=== PATIENT | male | born 1965 | race Caucasian/White ===

== ENCOUNTER 2019-09-20 12:28 | Emergency (ER) | payer BC, SELFPAY ==
[2019-09-20 12:30] VITALS: BP 152/80; PULSE 116; RESP 18; TEMP 36.6; O2SAT 98; BMI 29.1
--- NOTE | 2019-09-20 13:29 | ED.DCSUM_ITS ---
- ER Visit Summary Date of Service: 09/20/19 Chief Complaint: Cough and chest pain History of Present Illness: The patient is a 53 M who presents with cough and chest pain that began yesterday. Patient describes the pain is dull and aching. Patient states the pain is over the substernal area. Patient states pain improves with Tylenol. Patient states this feels similar to prior episodes of bronchitis. Patient admits to a fever of 101 at home. Patient states he is coughing up some yellow sputum. Patient admits to some shortness of breath as well. Patient also admits to headache and rhinorrhea. Physical Examination: Vital signs are stable. Patient is afebrile. Patient is in no acute distress. Oral mucosa is pink and moist. Neck is supple. Trachea is midline. There is no JVD noted. Heart was regular rate and rhythm. Lungs showed a few scattered rhonchi. Abdomen is soft. Bowel sounds are normal. There is no tenderness. There is no rebound or guarding noted. Skin is warm dry. Cranial nerves II through XII are intact. There are no focal motor or sensory deficits noted. Extremities are intact. There is no calf tenderness or edema. Test Results: CBC shows a slight leukocytosis of 12.0. Comprehensive metabolic profile was within normal limits. RSV swab was negative. Influenza swab was negative. Rapid strep swab was obtained and was positive. PA and lateral chest x-ray was obtained. There is no acute cardiopulmonary process. Emergency Department Course and Treatment: Patient was given a dose of Pen-Vee K here. Patient was given a prescription for Pen-Vee K. Patient was instructed to follow-up with his primary care physician in 5 to 7 days. Patient understood and was agreeable with the plan. All questions were answered. Disposition: Discharge home Impression: Strep pharyngitis This note was generated with [employer] dictation software. It may contain incorrect words, spelling, and punctuation that were not noted in review of the chart prior to signing ED Disposition - Plan for ED Patient: Disposition: Home or Assisted Living Diagnosis: Strep pharyngitis Instructions: PHARYNGITIS, Strep (Confirmed) Prescriptions: Penicillin V Potassium 500 mg PO 4X/DAY #40 tab Prescription Printed Referrals: NOT,DEFINED [NON-STAFF] - 5-7 Days
--- NOTE | 2019-09-20 13:44 | RAD_ITS ---
STUDY: X-RAY CHEST REASON FOR EXAM: Male, 53 years old. COUGH, FEVER, SOB, HEADACHE, CHEST TIGHTNESS TECHNIQUE: PA and lateral views of the chest. COMPARISON: None. FINDINGS: Hyperinflation. There is no demonstrated pleural abnormality. Normal size heart. Calcified bilateral hilar lymph nodes. There is prominence of the pulmonary hilar arteries without peripheral pulmonary vascular congestion, suggesting pulmonary hypertension. Normal visualized aortic arch and descending thoracic aorta. There are degenerative changes of the visualized thoracic spine. Normal visualized ribs, clavicles, and shoulders. There is no demonstrated abnormality of the visualized soft tissue structures of the upper abdomen. RAD/Chest PA and Lateral IMPRESSION: Hyperinflation. No acute abnormality is seen. Electronically Signed: Augustine Bowman, at 14:07 EDT , Service support ,
[2019-09-20 13:47] LABS: Absolute Neutrophil Count 5.6 X10^3/uL (2.0-7.7); Basophil# 0.04 X10^3/uL; Basophil% 0.3 % (0-1); Eosinophils% 0.8 % (0-5); Hematocrit 46.9 % (40-54); Hemoglobin 15.8 g/dL (13.0-16.5); Mean Corp Hgb Conc 33.7 g/dL (32-36); Mean Corpuscular Hgb 31.9 pg (27.0-32.0); Mean Corpuscular Volume 94.7 fL (80-94); Mean Platelet Vol. 9.9 fl (6.2-12.0); Monocyte# 0.97 X10^3/uL; Monocyte% 8.1 % (0-10); NRBC Flagged by Analyzer 0 % (0-5); Neutrophil # 5.57 X10^3/uL (2.7-7.7); Neutrophil % 46.3 % (47-70); POSITIVE DIFFERENTIAL YES; Platelet Count 298 K/mm3 (150-450); RBC Distribution Width SD 45.2 fl (35.1-43.9); Red Blood Count 4.95 M/mm3 (4.6-6.2)
[2019-09-20 14:07] LABS: AST(SGOT) 15 U/L (15-37); Alanine Aminotransfer ALT/SGPT 18 U/L (16-61); Albumin, Serum 3.7 g/dL (3.2-5.0); Alkaline Phosphatase 68 U/L (45-117); Anion Gap 8 (5-15); BUN 12 mg/dL (7-18); BUN/Creat Ratio 9.5 RATIO (10-20); Calcium,Total 8.6 mg/dL (8.5-10.1); Chloride 102 mmol/L (98-107); Creatinine, Serum 1.26 mg/dL (0.70-1.30); EST Glomerular Filtration Rate 64 mL/min (>60); Est Glom Filt Rate - Afr Amer 77 mL/min (>60); Estimated Creatinine Clearance 60.33 ml/min; Globulin 3.7 g/dL (2.2-4.2); Glucose 108 mg/dL (74-106); Potassium 3.6 mmol/L (3.5-5.1); Protein, Total 7.4 g/dL (6.4-8.2); Sodium Level 138 mmol/L (136-145)
[2019-09-20 14:50] LABS: Differential Indicated SCAN CRITERIA MET
[2019-09-20 15:01] LABS: Differential Comment S
[2019-09-20] MEDS: Penicillin Vk 250 MG Tablet 500 MG PO (16:12)
[2019-09-20 16:14] VITALS: BP 100/81; PULSE 74; RESP 16; O2SAT 97
--- NOTE | 2019-09-20 16:14 | ED.RN ---
IV DC'ED, CATHETER INTACT, SMALL GAUZE DRESSING PLACED. DISCHARGE INSTRUCTIONS GIVEN TO AND REVIEWED WITH PATIENT. PATIENT DENIES QUESTIONS OR CONCERNS AND VOICES UNDERSTANDING OF DISCHARGE INSTRUCTIONS. PT AMBULATES OUT OF ROOM WITHOUT DIFFICULTY.
== END 2019-09-20 16:15 | disposition home or self-care (01) ==
PROVIDERS: Emergency Provider Emergency Medicine
DX: J02.0 Streptococcal pharyngitis (principal); R19.7 Diarrhea, unspecified; F17.200 Nicotine dependence, unspecified, uncomplicated
CPT/HCPCS: 71046; 80053; 85025; 87804; 87807; 87880; 99283; A4216

== ENCOUNTER 2024-03-15 09:46 | Emergency (ER) | payer MEDICAID, SELFPAY ==
[2024-03-15 09:47] VITALS: BP 185/84; PULSE 79; RESP 18; TEMP 36.4; O2SAT 100; BMI 30.9
--- NOTE | 2024-03-15 10:01 | RAD_ITS ---
STUDY: X-RAY - LEFT FOOT CLINICAL: Male, 58 years old. Injury/Pain TECHNIQUE: 3 view(s) of the foot. COMPARISON: None. FINDINGS: Normal talus, calcaneus, and tarsal bones. Normal visualized subtalar, talonavicular, calcaneocuboid, tarsal and tarsometatarsal articulations. Normal metatarsi. Normal metatarsophalangeal joint of the great toe. There is a bipartite tibial sesamoid. Normal interphalangeal joint of the great toe. Normal phalanges of the great toe. Normal second through fifth metatarsophalangeal joints. Normal interphalangeal joints and phalanges of the lesser toes. The soft tissue structures are unremarkable. RAD/Foot min 3 Views IMPRESSION: Normal x-ray examination of the foot. Electronically Signed: Augustine Bowman MD at 10:36 EDT ,
--- NOTE | 2024-03-15 10:01 | ED.VIS.LOWEX ---
HPI History of Present Illness Chief Complaint: Lower Extremity Injury Detail of Chief Complaint: Injury left foot due to blunt trauma 1 week ago Informant: patient and spouse/S.O. Occured/Mechanism Mechanism/Context: Yes injury and Yes blunt trauma Comment: Patient would fell on his foot. He complains of pain and swelling MTP joint of the great toe Onset/Context/Timing Onset: Weeks (1.0) Context: Sudden Onset Timing: Continuous Quality of Pain: Dull and Aching Location: Proximity of the left great toe Current Severity: Mild Maximum Severity: Moderate Worsened by: Weightbearing Relieved by: Nothing Associated Symptoms Associated Symptoms: Negative for Parasthesia, Weakness or Loss of Funtion Narrative Narrative: Patient is a 58-year-old male. He has no significant past medical history on no medication. He denies paresthesia, anesthesia motors. Denies prior injury. He has no history of gout or pseudogout. Prior similar symptoms: No Recent Illness/Hospitalization: No PFSH PFSH Medical History no medical history no medical history Home Medications ?Medication ?Instructions ?Recorded ?Last Taken ?Type lisinopril 10 mg tablet 10 mg PO DAILY #30 tabs 03/15/24 Unknown Rx Allergy/AdvReac Type Severity Reaction Status Date / Time acetaminophen (From Vicodin) AdvReac Nausea Verified 03/15/24 09:46 hydrocodone (From Vicodin) AdvReac Nausea Verified 03/15/24 09:46 Social History (Updated 03/15/24 @ 10:[address] Cezar Pace MD) household members: spouse Smoking Status: Current every day smoker tobacco type: cigarettes ROS ROS ED Musculoskeletal Musculoskeletal: Reports other Details: Left foot pain proximity of left great toe Integumentary Reports other Details: Slight bruising. Otherwise negative Hematologic/Lymphatic Hematologic/Lymphatic: Reports easy bleeding and easy bruising EXAM Physical Exam Const Vital Signs: 03/15/24 09:47 Temperature 97.6 F L Temperature Source Temporal Pulse Rate 79 Respiratory Rate 18 Blood Pressure 185/84 H Blood Pressure Mean 117 Pulse Ox 100 Oxygen Delivery Method Room Air Positive well nourished and well developed General Appearance ED: well developed and NAD HEENT normocephalic and atraumatic Resp normal respiratory effort Cardio regular rate and regular rhythm Extremity full ROM; Negative for normal to inspection Extremity Narrative: There is slight swelling over the left great toe. There is discoloration of the dorsal surface. He has pain ovation over the great toe and second and third toe. DP and PT pulse are palpable. Patient does not have stigmata PAD. Neuro oriented x3, CN's II-XII intact bilaterally and moves all extremities Psych mental status grossly normal Skin Skin Narrative: Bruising as previously described MDM MDM MDM Narrative Medical decision making narrative: With patient having pain for 1 week and difficulty ambulating will obtain x-ray to rule out contusion versus fracture. Radiography Chest X-Ray - ED: Read by ED Physician (Three-view x-ray reveals no fracture, subluxation dislocation or foreign body.) Diagnostic Testing: Clinical Impression(s) from Imaging Studies Foot X-Ray 03/15/24 10:01 IMPRESSION: Normal x-ray examination of the foot. Electronically Signed: Augustine Bowmna MD at 10:36 EDT , Discharge Plan Triage Chief Complaint: Lower Extremity Injury ED Provider: Cezar Pace Dx/Rx/DC Orders Clinical Impression: Contusion of left foot, initial encounter, Elevated blood-pressure reading, without diagnosis of hypertension Instructions: ED Foot Contusion, ED Hypertension New Begin Treatment Prescriptions: New lisinopril 10 mg tablet 10 mg PO DAILY Qty: 30 0RF Primary Care Provider: Care Physician,No Primary Referrals: Adam Ritter MD [Med Staff - Chief Of Internal Medicine] - 1-2 Weeks Care Physician,No Primary [Primary Care Provider] - Print Language: Yakut Disposition Disposition: Home, Self Care
[2024-03-15 11:46] VITALS: BP 135/87; PULSE 72; RESP 16; TEMP 36.6; O2SAT 98
== END 2024-03-15 11:50 | disposition home or self-care (01) ==
PROVIDERS: Emergency Provider Emergency Medicine; Visit Provider Emergency Medicine
DX: S90.32XA Contusion of left foot, initial encounter (principal); F17.210 Nicotine dependence, cigarettes, uncomplicated; R03.0 Elevated blood-pressure reading, without diagnosis of hypertension; X58.XXXA Exposure to other specified factors, initial encounter
CPT/HCPCS: 73630; 99282

== ENCOUNTER → 2024-07-13 | Outpatient (CLI) | payer MEDICAID, SELFPAY ==
[2024-07-13 12:14] LABS: Absolute Lymphocyte Count 4.54 X10^3/uL (0.83-4.51); Absolute Neutrophil Count 6.7 X10^3/uL (2.0-7.7); Basophil# 0.05 X10^3/uL; Basophil% 0.4 % (0-1); Eosinophil# 0.06 X10^3/uL; Eosinophils% 0.5 % (0-5); Hematocrit 49.3 % (40-54); Hemoglobin 16.4 g/dL (13.0-16.5); Lymphocyte # 4.54 X10^3/ul (0.83-4.51); Lymphocyte % 37.4 % (19-41); Mean Corp Hgb Conc 33.3 g/dL (32-36); Mean Corpuscular Hgb 29.4 pg (27.0-32.0); Mean Corpuscular Volume 88.5 fL (80-94); Mean Platelet Vol. 10.5 fl (6.2-12.0); Monocyte# 0.79 X10^3/uL; Monocyte% 6.5 % (0-10); NRBC Flagged by Analyzer 0 % (0-5); Neutrophil # 6.66 X10^3/uL (2.7-7.7); Neutrophil % 54.8 % (47-70); Platelet Count 320 K/mm3 (150-450); Red Blood Count 5.57 M/mm3 (4.6-6.2); White Blood Count 12.2 K/mm3 (4.4-11.0)
[2024-07-13 12:57] LABS: ALB/GLOB Ratio 1.1 RATIO (0.9-2.4); AST(SGOT) 20 U/L (15-37); Alanine Aminotransfer ALT/SGPT 22 U/L (16-61); Alkaline Phosphatase 68 U/L (45-117); Anion Gap 3 (5-15); BUN 15 mg/dL (7-18); BUN/Creat Ratio 11.9 RATIO (10-20); Calcium,Total 9.2 mg/dL (8.5-10.1); Chloride 104 mmol/L (98-107); Cholesterol 245 mg/dL (200); Creatinine, Serum 1.26 mg/dL (0.70-1.30); EST Glomerular Filtration Rate 63 mL/min (>60); Est Glom Filt Rate - Afr Amer 76 mL/min (>60); Globulin 3.6 g/dL (2.2-4.2); Glucose 107 mg/dL (74-106); High Density Lipoprotein 37 mg/dL; Magnesium 2.5 mg/dL (1.6-2.6); PSA,Total- Diagnostic 0.96 ng/mL (0.0-4.0); Potassium 4.2 mmol/L (3.5-5.1); Protein, Total 7.6 g/dL (6.4-8.2); Sodium Level 135 mmol/L (136-145); Thyroid Stim Hormone (TSH) 0.769 uIU/mL (0.358-3.740); Triglycerides 284 mg/dL; Very Low Density Lipoprotein 57 mg/dL (5-40)
[2024-07-13 13:06] LABS: Vitamin B12 286 pg/mL (211-911)
[2024-07-16 20:08] LABS: Vitamin B1, Thiamine 145.9 nmol/L (66.5-200.0)
== END | disposition home or self-care (01) ==
LOC: BIMLAB 11:00
PROVIDERS: PCP Internal Medicine; Referring Provider Internal Medicine; Visit Provider Internal Medicine
DX: R40.4 Transient alteration of awareness (principal); N52.9 Male erectile dysfunction, unspecified; R07.89 Other chest pain; Z91.148 Patient's other noncompliance with medication regimen for other reason; Z13.6 Encounter for screening for cardiovascular disorders
CPT/HCPCS: 36415; 80053; 80061; 82607; 83735; 84153; 84425; 84443; 85025

== ENCOUNTER → 2024-08-19 | Outpatient (CLI) | payer MEDICAID, SELFPAY ==
--- NOTE | 2024-08-19 10:01 | MRI_ITS ---
PROCEDURE: BRAIN W/WO CONTRAST REASON FOR EXAM: Staring episodes. TECHNIQUE: Multiplanar, multisequence MRI of the brain with and without intravenous gadolinium-based contrast. CONTRAST: 15 mL Clariscan. COMPARISON: None. FINDINGS: Mild global parenchymal atrophy. Periventricular white matter T2/FLAIR hyperintense foci likely representing mild chronic microvascular ischemia. No evidence of acute hemorrhage or infarction. No abnormal intracranial enhancement. No extra-axial blood or fluid collections. Bilateral maxillary sinus retention cysts. The orbits are unremarkable. MRI/Brain W/WO Contrast IMPRESSION: No acute intracranial abnormality. Reading Location: [place] [id number]
== END | disposition home or self-care (01) ==
LOC: MRI 09:56
PROVIDERS: PCP Internal Medicine; Referring Provider Internal Medicine; Visit Provider Internal Medicine
DX: R40.4 Transient alteration of awareness (principal)
CPT/HCPCS: 70553; A9575

== ENCOUNTER → 2024-08-23 | Outpatient (CLI) | payer MEDICAID, SELFPAY | END | disposition home or self-care (01) | LOC: PSN 07:59 | PROVIDERS: PCP Internal Medicine; Referring Provider Internal Medicine; Visit Provider Internal Medicine | DX: R40.4 Transient alteration of awareness (principal) | CPT/HCPCS: 95819 ==

== ENCOUNTER 2024-09-10 07:39 | Day surgery (SDC) | payer MEDICAID, SELFPAY ==
[2024-09-10] VITALS (9 sets, daily range): BP systolic 97–139; BP diastolic 75–86; PULSE 77–90; RESP 16–18; TEMP 36.2–36.6; O2SAT 95–100; BMI 27.3
--- NOTE | 2024-09-10 08:19 | PCM.PRE.AN2 ---
ASA Classification* ASA Classification ASA Classification: 2 Assessment & Plan Anesthesia* Anesthesia Assessment Anesthesia Assessment: Discussed sedation and/or anesthesia options, risks, benefits, and alternatives with patient/parents/legal guardian/POA. Questions invited. The patient/parents/legal guardian/POA seems to understand and agrees to proceed with anesthesia plan. Reviewed the physical assessment, medical history, allergy history and patient home medications list prior to surgery/procedure/anesthetic and documented any changes. Performed airway and anesthesia risk assessments. Anesthesia Type Anesthesia Type: MAC Anesthesia Focused Assessment* Temperature: 97.9 F Pulse Rate: 90 Blood Pressure: 139/86 Respiratory Rate: 16 Pulse Ox: 99 Airway Assessment Mouth opens: >3 cm Mallampati Score: II Focused Labs Anesthesia Preop lab: CBC WBC 12.2 K/mm3 (4.4-11.0) H 07/13/24 11:00 07/13/24 RBC 5.57 M/mm3 (4.6-6.2) 07/13/24 11:00 07/13/24 Hgb 16.4 g/dL (13.0-16.5) 07/13/24 11:00 07/13/24 Hct 49.3 % (40-54) 07/13/24 11:00 07/13/24 Plt Count 320 K/mm3 (150-450) 07/13/24 11:00 07/13/24 CHEMISTRY Potassium 4.2 mmol/L (3.5-5.1) 07/13/24 11:00 07/13/24 Sodium 135 mmol/L (136-145) L 07/13/24 11:00 07/13/24 Magnesium 2.5 mg/dL (1.6-2.6) 07/13/24 11:00 07/13/24 BUN 15 mg/dL (7-18) 07/13/24 11:00 07/13/24 Creatinine 1.26 mg/dL (0.70-1.30) 07/13/24 11:00 07/13/24 Glucose 107 mg/dL (74-106) H 07/13/24 11:00 07/13/24 TSH 0.769 uIU/mL (0.358-3.740) 07/13/24 11:00 07/13/24 COAG Pre-Assessment Diagnosis/Proposed Procedure Planned Operative Procedure(s): CSCOPE Anesthesia History Anesthesia History - director public policy: Anesthesia History - director public policy Hx Hospitalization No 09/08/24 11:38 Any Problems With Anesthesia No 09/08/24 11:38 Cholinesterase deficiency No 09/08/24 11:38 You/Your Family Experience No 09/08/24 11:38 fever (hyperthermia) with Relationship Recent Exposure to Contagious No 09/10/24 08:01 Disease Does patient have nerve No 09/08/24 11:38 stimulator Patient instructed to have device shut off --Does patient have Pacemaker No 09/10/24 08:01 or ICD? When Was Last Pacemaker Check QUESTION #4 FULL TEXT: You/Your Family Experience fever (hyperthermia) with Anesthesia Last Oral Intake Last Oral intake: Last Oral Intake NPO since 06:00 09/10/24 08:01 Meds taken in AM with sips of No 09/10/24 08:01 water? Meds patient instructed to take am of surgery PONV PONV - director public policy: PONV - director public policy Female No 09/08/24 11:38 HX of Motion Sickness No 09/08/24 11:38 HX of N/V After Surgery No 09/08/24 11:38 Non-Smoker No 09/08/24 11:38 Duration of Surgery greater No 09/08/24 11:38 than 60 minutes Number of Risk Factors PONV Score Height & Weight Height & Weight: Anesthesia: Height & Weight Height 5 ft 4 in 09/10/24 08:01 Weight: 72.2 kg 09/10/24 08:01 Body Mass Index (BMI) 27.3 09/10/24 08:01 Respiratory Assessment Respiratory Assessment - director public policy: Respiratory Tract Infection Hx - director public policy Hx Respiratory Tract Infection Yes: 07/2023, CLEARED UP 09/08/24 11:38 STOP Sleep Apnea STOP Sleep Apnea - director public policy: STOP Sleep Apnea - director public policy Hx Hypertension Yes: WHITE COAT SYNDROME 09/08/24 11:38 Hx Sleep Apnea No 09/08/24 11:38 CPAP BIPAP Do you snore loudly (louder No 09/08/24 11:38 than talking or can be heard Do you often feel tired/ No 09/08/24 11:38 fatigued/ sleepy during daytime? Has anyone observed you stop No 09/08/24 11:38 breathing during sleep? STOP Results Negative 09/08/24 11:38 QUESTION #5 FULL TEXT : Do you snore loudly (louder than talking or can be heard through closed doors)? 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 Specify any problems Hx of Preganancy in last 3 N/A 09/08/24 11:38 Months Nurse Filling Out Transfusion NBUCHER 09/08/24 11:38 & Questions: Date: 09/08/24 09/08/24 11:38 Time: 11:39 09/08/24 11:38 Patient unable to answer at this time (ie. confused, unrespo /Reproduction History /Reproductive History - director public policy: /Reproductive Hx- director public policy Hx Now No 09/08/24 11:38 Gestational Age (in weeks): EDC: Hx Hx Para Hx Section SAB No 09/08/24 11:38 [facility] Medical History Wears glasses No natural teeth Seizures High cholesterol Smoker Peptic ulcer hemorrhage History of tumor Vision problems Head ache Back problem Home Medications ?Medication ?Instructions ?Recorded ?Last Taken ?Type ibuprofen 200 mg tablet 200 mg PO Q6H PRN pain 07/13/24 Unknown History mecobalamin (vitamin B12) 500 mcg 500 mcg PO QDAY 07/20/24 Unknown History chewable tablet lovastatin 20 mg tablet 20 mg PO QPM #30 tabs 08/05/24 Unknown Rx Allergy/AdvReac Type Severity Reaction Status Date / Time lisinopril AdvReac Mild dry mouth, Verified 09/10/24 08:01 cough hydrocodone (From Vicodin) AdvReac Nausea Verified 09/10/24 08:01 Family History Mother Alcoholism Arthritis Cancer cervical Hypertension Grandfather Alcoholism Myocardial infarction, Onset Age: 50 Hypertension Liver disease Surgical History History of hip surgery History of tonsillectomy Hx of appendectomy Social History household members: spouse current occupational status: employed 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
--- NOTE | 2024-09-10 08:46 | H&P.OPEN ---
HPI - General HPI Narrative RO DE LA ROSA, is a 58 M who presents for screening colonoscopy. This is his first colonoscopy. He denies abdominal pain or blood in the stool. He has no family history of colon cancer. PFSH Medical History Wears glasses No natural teeth Seizures High cholesterol Smoker Peptic ulcer hemorrhage History of tumor Vision problems Head ache Back problem Home Medications ?Medication ?Instructions ?Recorded ?Last Taken ?Type ibuprofen 200 mg tablet 200 mg PO Q6H PRN pain 07/13/24 Unknown History mecobalamin (vitamin B12) 500 mcg 500 mcg PO QDAY 07/20/24 Unknown History chewable tablet lovastatin 20 mg tablet 20 mg PO QPM #30 tabs 08/05/24 Unknown Rx Allergy/AdvReac Type Severity Reaction Status Date / Time lisinopril AdvReac Mild dry mouth, Verified 09/10/24 08:01 cough hydrocodone (From Vicodin) AdvReac Nausea Verified 09/10/24 08:01 Family History Mother Alcoholism Arthritis Cancer cervical Hypertension Grandfather Alcoholism Myocardial infarction, Onset Age: 50 Hypertension Liver disease Surgical History History of hip surgery History of tonsillectomy Hx of appendectomy Social History household members: spouse current occupational status: employed 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, 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 Smoking Status: Current every day smoker tobacco type: cigarettes quit status: not considering quitting alcohol intake: former details: quit 01/2011 substance use type: does not use what type of physical activity do you participate in: none seatbelt use: always do you feel safe at home: Yes Past Medical/Surgical History Planned Operation Planned Operative Procedure(s): CSCOPE Previous Hospitalizations/Surgeries HX Hospitalizations: No Any Problems With Anesthesia: No You/Your Family Experience Fever (Hyperthermia) With Anes: No Cholinesterase deficiency: No Cardiovascular Hx Hypertension: Yes (WHITE COAT SYNDROME) Respiratory Hx Sleep Apnea: No Hx Respiratory Tract Infection/Cold (presently): Yes (07/2023, CLEARED UP) Do You Snore Loudly (louder than talking or can be heard): No Do You Often Feel Tired/ Fatigued/ Sleepy Dring Daytime?: No Has Anyone Observed You Stop Breathing During Sleep?: No Result (for STOP score): Negative Smoking Status: Current every day smoker Neurological Does patient have nerve stimulator: No Reproduction : No Miscellaneous Recent Exposure to Contagious Disease: No Allergies lisinopril Adverse Reaction (Mild, Verified 09/10/24 08:01) dry mouth, cough CARRILLO hydrocodone (From Vicodin) Adverse Reaction (Verified 09/10/24 08:01) Nausea Discharge Is Pt Admitted From a Custodial, or a Long Term: No After D/C, Where Do you Plan to Go: Return Home Vital Signs Vital Signs Vital Signs: 09/10/24 08:01 09/10/24 08:01 09/10/24 08:19 Temperature 97.9 F 97.9 F Temperature Source Temporal Pulse Rate 90 90 Respiratory Rate 16 16 Respiratory Pattern Normal Blood Pressure 139/86 H 139/86 H Blood Pressure Mean 103 Blood Pressure Source Monitor Blood Pressure Position Semi-Fowlers Blood Pressure Location Right Arm Pulse Ox 99 99 Oxygen Delivery Method Room Air Weight Weight: 159 lb 2.78 oz Body Mass Index (BMI) 27.3 Physical Exam Const alert and oriented x3 HEENT normocephalic Eyes PERRL Resp normal respiratory effort and normal air movement Cardio regular rate and regular rhythm GI soft to palpation, non-tender and non-distended Extremity normal to inspection Assessment & Plan Assessment/Plan (1) Encounter for screening for malignant neoplasm of colon: PLAN: I explained endoscopy in detail to the patient. I explained the risks including but not limited to stroke or heart attack with anesthesia, perforation of the GI tract, bleeding, infection. I explained that any of these could necessitate further emergency surgery. The patient understands and all questions were answered sufficiently. The patient wishes to proceed with procedure. Chele Stauffer MD Pager: [facility] [address] [place] [address], [address] [place] [address] Office: Surgery Risks - Colonoscopy Risks Include but are not Limited To: Risks include but are not limited to: Bleeding, perforation requiring further surgery, inability to complete colonoscopy requiring barium enema.
--- NOTE | 2024-09-10 09:10 | OP.COLON_ITS ---
Patient Name: Alireza Kamara Procedure Date: 09/10/2024 8:48 AM Date of : 1965 Age: 58 Procedure: Colonoscopy Indications: Screening for colorectal malignant neoplasm Providers: Chele Stauffer MD Referring MD: Alyssia La Md Medicines: Propofol per Anesthesia Patient Profile: This is a 58 year old male. Refer to note in patient chart for documentation of history and physical. Last Colonoscopy: none. The patient's first colonoscopy is today. Complications: No immediate complications. Procedure: Pre-Anesthesia Assessment: - Prior to the procedure, a History and Physical was performed, and patient medications and allergies were reviewed. The patient's tolerance of previous anesthesia was also reviewed. The risks and benefits of the procedure and the sedation options and risks were discussed with the patient. All questions were answered, and informed consent was obtained. Prior Anticoagulants: The patient has taken no anticoagulant or antiplatelet agents. After reviewing the risks and benefits, the patient was deemed in satisfactory condition to undergo the procedure. After I obtained informed consent, the scope was passed under direct vision. Throughout the procedure, the patient's blood pressure, pulse, and oxygen saturations were monitored continuously. The Colonoscope was introduced through the anus and advanced to the cecum, identified by appendiceal orifice and ileocecal valve. The colonoscopy was performed without difficulty. The patient tolerated the procedure well. The quality of the bowel preparation was good. The ileocecal valve, appendiceal orifice, and rectum were photographed. Scope In: 8:56:43 AM Scope Withdrawal Time 0 hours 7 minutes 3 seconds Scope Out: 9:07:36 AM Total Procedure Duration Time 0 hours 10 minutes 53 seconds Findings: The entire examined colon appeared normal on direct and retroflexion views. Impression: - The entire examined colon is normal on direct and retroflexion views. - No specimens collected. Recommendation: - Discharge patient to home. - Resume previous diet. - Continue present medications. - Repeat colonoscopy in 10 years for screening purposes. Procedure Code(s): --- Professional --- 49012, Colonoscopy, flexible; diagnostic, including collection of specimen(s) by brushing or washing, when performed (separate procedure) Diagnosis Code(s): --- Professional --- Z12.11, Encounter for screening for malignant neoplasm of colon CPT copyright 2021 [employer]. All rights reserved. The codes documented in this report are preliminary and upon cost consultant review may be revised to meet current compliance requirements. Chele Stauffer MD 09/10/2024 9:10:27 AM This report has been signed electronically. Number of Addenda: 0 Note Initiated On: 09/10/2024 8:48 AM
--- NOTE | 2024-09-10 09:10 | OP.CCLET_ITS ---
09/10/2024 Alyssia La Md Re : Colonoscopy procedure for Alireza Kamara Dear Abhinav This procedure was performed on Tuesday, September 10, 2024. My impressions and recommendations are as follows: Impressions : - The entire examined colon is normal on direct and retroflexion views. - No specimens collected. Recommendations : - Discharge patient to home. - Resume previous diet. - Continue present medications. - Repeat colonoscopy in 10 years for screening purposes. My findings are described in the full procedure note, which is enclosed. If I can be of further assistance, please feel free to contact me at Doctor phone number(s): , Work: . Sincerely, Chele Stauffer MD 09/10/2024 9:10:27 AM This report has been signed electronically.
--- NOTE | 2024-09-10 09:15 | PCM.POST.ANE ---
Anesthesia: Postop Eval I Current Vital Signs Temperature: 97.2 F Pulse Rate: 88 Blood Pressure: 97/75 Respiratory Rate: 18 Pulse Ox: 96 Oxygen Delivery Method: Room Air Assessment Airway patent: Yes Spontaneous unlabored respirations: Yes Mental status: Asleep nausea: No Vomiting: No Anesthesia Complication: No Fluid Hydration Crystalloid volume administer (ml): 45 Total IV fluid infused: 45 Progress Note Anesthesia document: Postop Eval 1 completed: Yes
--- NOTE | 2024-09-10 09:37 | PCM.POSTANE2 ---
Anesthesia Postop Eval I Sum Postop Eval Completion status Anesthesia document: Postop Eval 1 completed: Yes Anesthesia Postop Eval I Summary Anesthesia Postop Eval I Summary: Anesthesia Postop Eval I: Assessment Summary Airway patent Yes 09/10/24 09:16 [email or web address] Spontaneous unlabored Yes 09/10/24 09:16 [email or web address] respirations Mental status Asleep 09/10/24 09:16 [email or web address] nausea No 09/10/24 09:16 [email or web address] Vomiting No 09/10/24 09:16 [email or web address] Anesthesia Postop Eval I: Fluid Summary Crystalloid volume administer 45 09/10/24 09:16 [email or web address] (ml) Colloids volume administered ( ml) Blood Product volume administered (ml) Total IV fluid infused 45 09/10/24 09:16 [email or web address] Anesthesia Postop Eval I: Summary Notes Anesthesia Complication No 09/10/24 09:16 [email or web address] Anesthesia Complication Comment: Post-operative progress note Anesthesia: Postop Eval II Evaluation Mental status: Awake Pain Level: 0 nausea: No Vomiting: No
== END 2024-09-10 09:50 | disposition home or self-care (01) ==
LOC: EN 07:40 → AC 07:41
PROVIDERS: PCP Internal Medicine; Referring Provider Internal Medicine; Visit Provider Surgery
PROC: 0DJD8ZZ Inspection of Lower Intestinal Tract, Via Natural or Artificial Opening Endoscopic (ICD-10-PCS; CPT 45378; principal; 2024-09-10 08:55)
DX: Z12.11 Encounter for screening for malignant neoplasm of colon (principal); I10 Essential (primary) hypertension; F17.210 Nicotine dependence, cigarettes, uncomplicated; E78.00 Pure hypercholesterolemia, unspecified
CPT/HCPCS: 45378; A4216; J2405

== ENCOUNTER → 2025-01-29 | Outpatient (CLI) | payer MEDICAID, SELFPAY ==
--- OUTSIDE RECORDS SUMMARY | 2025-01-29 08:33 | XMS RPT_ITS | CCD ---
Author Organization [facility]iniSy[facility] Care Team Providers Care Pharmaceutical Process Engineer Name Role Phone Care Physician, No Primary Primary Care Provider Unavailable Care Physician, No Primary Referring Provider Un available Abhinav WU, Dr. Cade Attending Provider Abhinav WU, Dr. Cade Primary Care Provider [phone] Abhinav WU, Dr. Cade Referring Provider Ramila Sanderson Attending Provider Unavailable Care Physician, No Primary Primary Care Provider Unavailable Care Physician, No Primary Referring Provider Un available Abhinav WU, Dr. Cade Attending Provider Abhinav WU, Dr. Cade Primary Care Provider [phone] Abhinav WU, Dr. Cade Referring Provider Ramila Sanderson Attending Provider Unavailable Eh WU, Dr. Elaine Attending Provider [phone] Eh WU, Dr. Elaine Other Provider Abhinav WU, Dr. Cade Primary Care Provider [phone] Abhinav WU, Dr. Cade Attending Provider Dr. Alyssia La MD Referring Provider Alyssia La Primary Care Unavailable Alyssia La Attending Unavailable Alyssia La Referring Unavailable Chele Stauffer Consulting Unavailable Chele Stauffer Attending Unavailable Alyssia La Primary Care Unavailable Abhinav, Alyssia Referring Unavailable Abhinav, Alyssia Primary Care Unavailable Ramila Sanderson Attending Unavailable Alyssia aL Primary Care Unavailable Alyssia La Attending Unavailable Abhinav, Alyssia Referring Unavailable Abhinav, Alyssia Attending Unavailable Care Physician, No Primary Primary Care Unava ilable Care Physician, No Primary Referring Unava ilable Abhinav, Alyssia Referring Unavailable Chele Stauffer Attending Unavailable Abhinav, Alyssia Primary Care Unavailable Dixon, Alyssia Referring Unavailable Abhinav, Alyssia Primary Care Unavailable Abhinav, Alyssia Attending Unavailable Dixon, Alyssia Referring Unavailable Abhinav, Alyssia Primary Care Unavailable Abhinav, Alyssia Attending Unavailable Pace, Cezar Attending Unavailable Care Physician, No Primary Primary Care Unava ilable Dixon, Alyssia Primary Care Unavailable Dixon, Alyssia Attending Unavailable Abhinav, Alyssia Referring Unavailable Allergies Allergy Classification Reported Allergen(s) Allergy Type Date of Onset Reaction(s) Facility (1 source) Acetaminophen Drug Allergy 5 Nausea [facility] (3 sources) HYDROcodone Drug Allergy 5 Nausea [facility] (3 sources) Lisinopril Drug Allergy 5 dry mouth, cough [facility] Comment on above: CARRILLO (1 source) Acetaminophen Drug Allergy 5 [facility] Repository (1 source) HYDROcodone Drug Allergy 5 [facility] Repository (1 source) Lisinopril Drug Allergy 5 [facility] Repository Medications Current Medications Medication Drug Class(es) Dates Sig (Normalized) Sig (Original) ibuprofen 200 mg oral tablet (3 sources) Nonsteroidal Anti-inflammatory Drug Start: 07-13-2024 take 6 tablets by mouth every eight hours as needed for pain Ibuprofen 200 mg tablet Active 200 mg PO EVERY 6 HOURS as needed for pain July 13, 2024 1:00am pt states takes 6 tabs po q 8hr lovastatin 20 mg oral tablet (5 sources) HMG-CoA Reductase Inhibitor Start: 08-05-2024 End: 11-29-2024 take 1 tablet by mouth once daily in the evening Lovastatin 20 mg tablet Active 20 mg PO EVERY EVENING November 29, 2024 11:17pm mecobalamin (3 sources) Start: 07-20-2024 take 1 tablet by mouth once daily Mecobalamin (Vitamin B12) 500 mcg tablet,chewable Active 500 ug PO daily July 20, 2024 1:00am Start: 07-20-2024 take 1 tablet by wild th once daily Mecobalamin (Vitamin B12) 500 mcg tablet,chewable Active 500 ug PO daily July 20, 2024 12:00am sertraline 25 mg oral tablet (1 source) Serotonin Reuptake Inhibitor Start: 10-19-2024 take 1 tablet by mouth once daily Sertraline (Zoloft) 25 mg tablet Active 25 mg PO daily October 19, 2024 12:00am tadalafil 5 mg oral tablet (1 source) Phosphodiesterase 5 Inhibitor Start: 10-19-2024 take 1 tablet by mouth once daily Tadalafil (Cialis) 5 mg tablet Active 5 mg PO daily October 19, 2024 12:00am Completed/Discontinued Medications Medication Drug Class(es) Dates Sig (Normalized) Sig (Original) atorvastatin 10 mg oral tablet (3 sources) HMG-CoA Reductase Inhibitor Start: 07-13-2024 End: 08-05-2024 take 1 tablet by mouth at bedtime Atorvastatin (Lipitor) 10 mg tablet Discontinued 10 mg PO AT BEDTIME July 13, 2024 1:00am August 05, 2024 6:39pm lisinopril 10 mg oral tablet (3 sources) Angiotensin Converting Enzyme Inhibitor Start: 03-15-2024 End: 07-13-2024 take 1 tablet by mouth once daily Lisinopril 10 mg tablet Discontinued 10 mg PO DAILY March 15, 2024 12:00am July 13, 2024 10:34am penicillin v potassium 500 mg oral tablet (3 sources) Start: 09-20-2019 End: 03-15-2024 take 1 tablet by mouth four times daily Penicillin V Potassium 500 MG tablet Discontinued 500 mg PO 4 TIMES DAILY September 20, 2019 12:00am March 15, 2024 10:12am Problems Active Problems Problem Classification Problem Date Documented Date Episodic/Chronic Anxiety disorders (2 sources) Mixed anxiety and depressive disorder; Translations: [Anxiety disorder, unspecified] 10-19-2024 Chronic Disorders of lipid metabolism (3 sources) Mixed hyperlipidemia; Translations: [Mixed hyperlipidemia] Onset: 10-19-2024 10-19-2024 Chronic Nutritional deficiencies (3 sources) Cobalamin deficiency; Translations: [Deficiency of other specified B group vitamins] Onset: 10-19-2024 10-19-2024 Episodic Other circulatory disease (3 sources) Elevated blood-pressure reading without diagnosis of hypertension; Translations: [Elevated blood-pressure reading, without diagnosis of hypertension] 03-23-2024 Episodic Other male genital disorders (5 sources) Male erectile dysfunction, unspecified; Translations: [Erectile dysfunction] Onset: 10-19-2024 07-13-2024 Chronic Other screening for suspected conditions (not mental disorders or infectious disease) (3 sources) Encounter for screening for malignant neoplasm of colon; Translations: [Encounter for screening for cardiovascular disorders] Onset: 07-13-2024 Episodic Other upper respiratory infections (3 sources) Streptococcal sore throat; Translations: [Streptococcal pharyngitis] 09-21-2019 Episodic Residual codes; unclassified (4 sources) Staring; Translations: [Transient alteration of awareness] 07-13-2024 Episodic Residual codes; unclassified (2 sources) Medication refused; Translations: [Immunization not carried out because of patient refusal] 07-13-2024 Episodic Residual codes; unclassified (4 sources) Medication overuse; Translations: [Overuse of medication] 07-13-2024 Episodic Residual codes; unclassified (1 source) Transient alteration of awareness; Translations: [Transient alteration of awareness] Onset: 10-19-2024 Episodic Substance-related disorders (5 sources) Smoker; Translations: [Nicotine dependence, unspecified, uncomplicated] Onset: 07-13-2024 07-13-2024 Chronic Unclassified (4 sources) Encounter for screening for malignant neoplasm of colon; Translations: [Z12.11 - Encounter for screening for malignant neoplasm of colon] Unclassified (2 sources) Episodes of staring; Translations: [R40.4 - Transient alteration of awareness] Unclassified (1 source) Patient's other noncompliance with medication regimen for other reason; Translations: [Patient's other noncompliance with medication regimen for other reason] Onset: 07-13-2024 Past or Other Problems Problem Classification Problem Date Documented Da te Episodic/Chronic Administrative/social admission (15 sources) Patient encounter status; Translations: [Encounter for pre-employment examination] Onset: 07-13-2024 07-12-2024 Episodic Nonspecific chest pain (3 sources) Tight chest; Translations: [Other chest pain] Onset: 07-13-2024 07-13-2024 Episodic Residual codes; unclassified (1 source) Immunization not carried out because of patient refusal; Translations: [Immunization not carried out because of patient refusal] Onset: 07-13-2024 Episodic Superficial injury; contusion (4 sources) Contusion of left foot; Translations: [Contusion of left foot, initial encounter] Onset: 07-13-2024 03-23-2024 Episodic Results Test Name Value Interpretation Reference Range Facility Internal Medicine Office Vis [facility] 12-06-2024 Internal Medicine Office Visit [facility] [address] [place] [address] [place] [address] OFFICE VISIT Date of Service: 12/07/24 MR#: [id number] Acct: [id number] Name: RO DE LA ROSA Rep #: [id number] : 1965 Provider: Dr. Alyssia elizabeth MD Age/Sex: 59/M Location[place] [facility] Status: Signed Intake Vital Signs 10/19/24 10:46 12/07/24 11:21 Height 5 ft 4 in 5 ft 4 in Weight: 160 lb 6 oz BMI 27.5 BP 114/78 Blood Pressure Location Lt brachial Position Sitting Respiration 16 Pulse 74 Pulse Source Monitor Temp 98.2 F Temp Source Temporal Pulse Oximetry (%) 93 Oxygen Delivery Method room air Intake Visit Reasons: 7 WK FU Chief Complaint: fu Annealer Helper Required: No Accompanied by: Self Is patient in pain?: No Allergies lisinopril Adverse Reaction (Mild, Verified 12/07/24 11:16) dry mouth, cough hydrocodone (From Vicodin) Adverse Reaction (Verified 12/07/24 11:16) Nausea Medications ???Medication ???Instructions ???Recorded ???Confirmed ???Type ibuprofen 200 mg tablet 200 mg PO Q6H PRN pain 07/13/24 History mecobalamin (vitamin B12) 500 mcg 500 mcg PO QDAY 07/20/24 12/07/24 History chewable tablet lovastatin 20 mg tablet 20 mg PO QPM #90 tabs 12/07/2404/23 Rx sertraline 25 mg tablet (Zoloft) 25 mg PO QDAY #90 tabs 12/07/24 Rx tadalafil 5 mg tablet (Cialis) 5 mg PO QDAY #90 tabs 12/07/2404/23 Rx Have you fallen in the past year?: No PFSH Medical History Wears glasses No natural teeth Seizures High cholesterol Smoker Peptic ulcer hemorrhage History of tumor Vision problems Head ache Back problem Surgical History History of hip surgery History of tonsillectomy Hx of appendectomy Family History Mother Alcoholism Arthritis Cancer cervical Hypertension Grandfather Alcoholism Myocardial infarction, Onset Age: 50 Hypertension Liver disease Social History household members: spouse current occupational status: employed 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 He never did his follow up labs as previously ordered. He is up to date on his screening. He previously declined any immunizations. He does smoke and doesn't want to quit at this time. He doesn't take any prescription medications. He reports he is eating healthy and staying active. The patient continues to have problems with staring spells and 'sparkles' in his vision. At his last office visit, a referral to neurology was placed. He reports that he hasn't had any episodes since he was last seen after starting the zoloft. He reports his mental health seems to be doing much better. He states he feels 'mellow.' He states he doesn't get as nervous around people nor does he feel as emotional. He feels the zoloft has made a big difference. At his last office visit, he complained of chronic pain. He was counseled on excessive NSAID use. He reports he did cut back on his dose and is currently doing 800mg twice daily. He states his pain is about the same with the smaller dose. It is primarily in his right shoulder. He feels it is manageable and doesn't want to do anything further for it at this time. He hasn't had any further episodes of chest tightness. He also complained of ED. He was started on cialis and reports that it did help with the erections, but he still struggles with ejaculations. He denies any problems with the medication. The patient has concerns about his wrist. He reports he has a lump there that he noticed about a week ago. He states it doesn't bother him in any way, but he would like to have it looked at. He denies any problems with his ROM. ROS Const Constitutional: No body ache, excessive sweating, fatigue, fever(s), frequent falls, headache(s), snoring, weakness, weight change, sleep problems or change in appetite Eyes Eyes: No blurry vision, change in vision, eye pain or Light sensitivity ENT ENT: No abnormal hearing, ear or mastoid pain, tinnitus, nasal congestion, headache(s), neck pain or sore throat Resp Respiratory: No cough, shortness of breath, snoring or wheezing Cardio Cardiology: No chest pain at rest, chest pain with exertion, excessive sweating, shortne (more content not included)... Normal [facility] Internal Medicine Office Vis [facility] 10-18-2024 Internal Medicine Office Visit [facility] [address] [place] [address] [place] [address] OFFICE VISIT Date of Service: 10/19/24 MR#: [id number] Acct: [id number] Name: RO DE LA ROSA Rep #: [id number] : 1965 Provider: Dr. Alyssia elizabeth MD Age/Sex: 59/M Location[place] [facility] Status: Signed Intake Vital Signs 09/10/24 08:01 10/19/24 10:46 Height 5 ft 4 in 5 ft 4 in Weight: 165 lb 2 oz BMI 28.3 BP 118/64 Blood Pressure Location Lt brachial Position Sitting Respiration 16 Pulse 112 H Pulse Source Monitor Temp 99 F Temp Source Temporal Pulse Oximetry (%) 95 Oxygen Delivery Method room air Intake Visit Reasons: CONTINUE DISCUSSIONS Chief Complaint: discuss Annealer Helper Required: No Accompanied by: Is patient in pain?: No Allergies lisinopril Adverse Reaction (Mild, Verified 10/19/24 10:37) dry mouth, cough hydrocodone (From Vicodin) Adverse Reaction (Verified 10/19/24 10:37) Nausea Medications ???Medication ???Instructions ???Recorded ???Confirmed ???Type ibuprofen 200 mg tablet 200 mg PO Q6H PRN pain 07/13/24 History mecobalamin (vitamin B12) 500 mcg 500 mcg PO QDAY 07/20/24 10/19/24 History chewable tablet lovastatin 20 mg tablet 20 mg PO QPM #30 tabs 10/03/24 Rx sertraline 25 mg tablet (Zoloft) 25 mg PO QDAY #30 tabs 10/19/24 Rx tadalafil 5 mg tablet (Cialis) 5 mg PO QDAY #30 tabs 10/19/24 Rx Have you fallen in the past year?: No PFSH Medical History Wears glasses No natural teeth Seizures High cholesterol Smoker Peptic ulcer hemorrhage History of tumor Vision problems Head ache Back problem Surgical History History of hip surgery History of tonsillectomy Hx of appendectomy Family History Mother Alcoholism Arthritis Cancer cervical Hypertension Grandfather Alcoholism Myocardial infarction, Onset Age: 50 Hypertension Liver disease Social History household members: spouse current occupational status: employed 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 1. Little interest or pleasure in doing things: several days 2. Feeling down, depressed, or hopeless: several days 3. Trouble falling or staying asleep, or sleeping too much: not at all 4. Feeling tired or having little energy: more than half the days 5. Poor appetite or overeating: not at all 6. Feeling bad about yourself - or that you are a failure or have let yourself and your family down: not at all 7. Trouble concentrating on things, such as reading the newspaper or watching television: several days 8. Moving or speaking so slowly that other people could have noticed? - Or the opposite - being so fidgety or restless that you have been moving around a lot more than usual: several days 9. Thoughts that you would be better off or of hurting yourself in some way: not at all Total score: 6 If you checked off any problems, how difficult have these problems made it for you to do your work, take care of things at home, or get along with other people?: somewhat difficult Source: Developed by Drs. Vikram Quintero, Jelena Bass, Cliff Aguilar and colleagues, with an educational maikol from [employer]. NEREYDA-7 BMS NEREYDA-7 Feeling nervous, anxious, or on edge: 1 = Several days Not being able to stop or control worryin = Not at all Worrying too much about different things: 2 = More than half the days Trouble relaxin = Not at all Being so restless that it is hard to sit still: 0 = Not at all Becoming easily annoyed or irritable: 2 = More than half the days Feeling afraid as if something awful might happen: 1 = Several days Total NEREYDA-7 score (0-4 normal; 5-9 mild; 10-14 moderate; 15-21 severe): 6 Source: Developed by Drs. Vikram Quintero, Jelena Bass, Cliff Aguilar and colleagues, with an educational maikol from [employer]. HPI HPI Chief Complaint: discuss Details: RO DE LA ROSA, is a 59 M who presents to the office today for a follow up. He is up to date on his routine blood work and screening. He previously declined any immunizations. He does smoke and doesn't want to quit at this time. He doesn't take any prescription medications. He repo (more content not included)... Normal [facility] Colonoscopy Reporton 025 Colonoscopy Report [facility] Medical Records Department [address] [place] [address] Colonoscopy Report MR#: [id number] Acct: [id number] Name: RO DE LA ROSA Rep #: [id number] : 1965 58 From: Chele Stauffer MD PCP: Dr. Alyssia La MD Status:REG [facility] Patient Name: Ro De La Rosa Procedure Date: 09/10/2024 8:48 AM Date of : 1965 Age: 58 Procedure: Colonoscopy Indications: Screening for colorectal malignant neoplasm Providers: Chele Stauffer MD Referring MD: Alyssia La Md Medicines: Propofol per Anesthesia Patient Profile: This is a 58 year old male. Refer to note in patient chart for documentation of history and physical. Last Colonoscopy: none. The patient's first colonoscopy is today. Complications: No immediate complications. Procedure: Pre-Anesthesia Assessment: - Prior to the procedure, a History and Physical was performed, and patient medications and allergies were reviewed. The patient's tolerance of previous anesthesia was also reviewed. The risks and benefits of the procedure and the sedation options and risks were discussed with the patient. All questions were answered, and informed consent was obtained. Prior Anticoagulants: The patient has taken no anticoagulant or antiplatelet agents. After reviewing the risks and benefits, the patient was deemed in satisfactory condition to undergo the procedure. After I obtained informed consent, the scope was passed under direct vision. Throughout the procedure, the patient's blood pressure, pulse, and oxygen saturations were monitored continuously. The Colonoscope was introduced through the anus and advanced to the cecum, identified by appendiceal orifice and ileocecal valve. The colonoscopy was performed without difficulty. The patient tolerated the procedure well. The quality of the bowel preparation was good. The ileocecal valve, appendiceal orifice, and rectum were photographed. Scope In: 8:56:43 AM Scope Withdrawal Time 0 hours 7 minutes 3 seconds Scope Out: 9:07:36 AM Total Procedure Duration Time 0 hours 10 minutes 53 seconds Findings: The entire examined colon appeared normal on direct and retroflexion views. Impression: - The entire examined colon is normal on direct and retroflexion views. - No specimens collected. Recommendation: - Discharge patient to home. - Resume previous diet. - Continue present medications. - Repeat colonoscopy in 10 years for screening purposes. Procedure Code(s): --- Professional --- 23893, Colonoscopy, flexible; diagnostic, including collection of specimen(s) by brushing or washing, when performed (separate procedure) Diagnosis Code(s): --- Professional --- Z12.11, Encounter for screening for malignant neoplasm of colon CPT copyright 2021 [employer]. All rights reserved. The codes documented in this report are preliminary and upon review scheduling coordinator review may be revised to meet current compliance requirements. Chele Stauffer MD 09/10/2024 9:10:27 AM This report has been signed electronically. Number of Addenda: 0 Note Initiated On: 09/10/2024 8:48 AM 09/10/24909 Date Chele Stauffer MD Cosign Signature: Date (if indicated) CC: Dr. Alyssia La MD; Dr. Chele Stauffer MD Date Dictated: 09/10/24847 Date Transcribed: Craft Artist: EFREN Lutz [facility] MR/POSTOP.AMBER 09-10-2024 MR/POSTOP.[facility] Medical Records Department [address] [place] [address] Anesthesia Postop Eval I 09/10/24914 MR#: [id number] Acct: [id number] Name: RO DE LA ROSA Rep #: [id number] : 1965 58 From: Antonio Hansen PCP: Dr. Alyssia La MD Status:REG SDC Y Race: C Location: [place] [address]- Anesthesia: Postop Eval I Current Vital Signs Temperature: 97.2 F Pulse Rate: 88 Blood Pressure: 97/75 Respiratory Rate: 18 Pulse Ox: 96 Oxygen Delivery Method: Room Air Assessment Airway patent: Yes Spontaneous unlabored respirations: Yes Mental status: Asleep nausea: No Vomiting: No Anesthesia Complication: No Fluid Hydration Crystalloid volume administer (ml): 45 Total IV fluid infused: 45 Progress Note Anesthesia document: Postop Eval 1 completed: Yes 09/10/24 09 Date Antonio Kamrolanie Signature: Date CC: Signed Normal [facility] MR/[email or web address] 09-10-2024 MR/POSTOPAN2 [facility] Medical Records Department [address] [place] [address] Anesthesia Postop Eval II 09/10/24 0937 MR#: [id number] Acct: [id number] Name: ESTRELLARO MONTES ALLIE Rep #: [id number] : 1965 58 From: Catalino Carbajal MD PCP: Dr. Alyssia La MD Status:REG [facility] Y Race: C Location: [place] [address] Anesthesia Postop Eval I Sum Postop Eval Completion status Anesthesia document: Postop Eval 1 completed: Yes Anesthesia Postop Eval I Summary Anesthesia Postop Eval I Summary: Anesthesia Postop Eval I: Assessment Summary Airway patent Yes 09/10/24 09:16 [email or web address] Spontaneous unlabored Yes 09/10/24 09:16 [email or web address] respirations Mental status Asleep 09/10/24 09:16 [email or web address] nausea No 09/10/24 09:16 [email or web address] Vomiting No 09/10/24 09:16 [email or web address] Anesthesia Postop Eval I: Fluid Summary Crystalloid volume administer 45 09/10/24 09:16 [email or web address] (ml) Colloids volume administered ( ml) Blood Product volume administered (ml) Total IV fluid infused 45 09/10/24 09:16 [email or web address] Anesthesia Postop Eval I: Summary Notes Anesthesia Complication No 09/10/24 09:16 [email or web address] Anesthesia Complication Comment: Post-operative progress note Anesthesia: Postop Eval II Evaluation Mental status: Awake Pain Level: 0 nausea: No Vomiting: No 09/10/24 0937 Date Catalino Carbajal MD Cosigner Signature: Date CC: Signed Normal [facility] Brain W/WO Contraston 2024 Brain W/WO Contrast [facility] Imaging Services [address] [place] [id number] Brain W/WO Contrast MR#: [id number] Acct: [id number] Name: RO DE LA ROSA Rep #: [id number] : 1965 M 58 From: Johnny Braga MD PCP: Dr. Alyssia La MD Status: REG CLI Study: Brain W/WO Contrast Date of Exam: 08/19/24 Exam# [id number] Ordering Dr: Alyssia La MD PROCEDURE: BRAIN W/WO CONTRAST REASON FOR EXAM: Staring episodes. TECHNIQUE: Multiplanar, multisequence MRI of the brain with and without intravenous gadolinium-based contrast. CONTRAST: 15 mL Clariscan. COMPARISON: None. FINDINGS: Mild global parenchymal atrophy. Periventricular white matter T2/FLAIR hyperintense foci likely representing mild chronic microvascular ischemia. No evidence of acute hemorrhage or infarction. No abnormal intracranial enhancement. No extra-axial blood or fluid collections. Bilateral maxillary sinus retention cysts. The orbits are unremarkable. MRI/Brain W/WO Contrast IMPRESSION: No acute intracranial abnormality. Reading Location: [id number] CC: Dr. Alyssia La MD Craft Artist: Signed Normal [facility] Vitamin B1, Thiamineon 07-16 VIT B1 THIAMINE 145.9 nmol/L Normal 66.5-200.0 [facility] Comment on above: Order Comment: Test( s) [id number]. B1, Whole Bloodwas developed and its performance characteristicsdetermined by [facility]. It has not been cleared or approvedby the Food and Drug Administration. Result Comment: Perf ormed at: - [address] [id number] Extension Work Instructor: Genaro Amador MD, Phone: [phone] Performed By: #### L 503.0105, L501.5200, L500.4050, L500.4100, L3300.8000, L501.9940, L501.9520, L100.0100 ####[facility] [address] [place], [address] Absolute neutrophil countOrd ered By: Alyssia La on 07-13-2024 Neutrophils (Bld) [#/Vol] 6.7 10*3/uL 2.0-7.7 [facility] Albumin to globulin ratioOrd ered By: Alyssia La on 07-13-2024 Albumin/Globulin [Mass ratio] 1.1 {ratio} Normal 0.9-2.4 [facility] Comment on above: Performed By: #### L 503.0105, L501.5200, L500.4050, L500.4100, L3300.8000, L501.9940, L501.9520, L100.0100 #### [facility] [address] [place], [address] Automated blood erythrocyte countOrdered By: Alyssia La on 07-13-2024 RBC (Bld) [#/Vol] 5.57 10*6/uL Normal 4.6-6.2 [facility] Comment on above: Performed By: #### L 503.0105, L501.5200, L500.4050, L500.4100, L3300.8000, L501.9940, L501.9520, L100.0100 #### [facility] [address] [place], [address] Automated blood hematocrit ( percentage)Ordered By: Alyssia La on 07-13-2024 Hematocrit (Bld) [Volume fraction] 49.3 % Normal 40-54 [facility] Comment on above: Performed By: #### L 503.0105, L501.5200, L500.4050, L500.4100, L3300.8000, L501.9940, L501.9520, L100.0100 #### [facility] [address] [place], [place], [id number] Automated lymphocyte count a s percentage of total leukocytesOrdered By: Alyssia La on 07-13-2024 Lymphocytes/100 WBC (Bld) 37.4 % Normal 19-41 [facility] Comment on above: Performed By: #### L 503.0105, L501.5200, L500.4050, L500.4100, L3300.8000, L501.9940, L501.9520, L100.0100 #### [facility] [address] [place], [address] Basophil percentageOrdered B y: Alyssia La on 07-13-2024 Basophils/100 WBC (Bld) 0.4 % Normal 0-1 [facility] Comment on above: Performed By: #### L 503.0105, L501.5200, L500.4050, L500.4100, L3300.8000, L501.9940, L501.9520, L100.0100 #### [facility] [address] [place], [address] Bilirubin, totalOrdered By: Alyssia La on 07-13-2024 Bilirubin [Mass/Vol] 0.30 mg/dL Normal 0.20-1.00 [facility] Comment on above: For patients on eltr ombopag therapy, use of Dimension [place] TBIL is not recommended. Result Comment: For patients on eltrombopag therapy, use of Dimension [place] TBIL is not recommended. Performed By: #### L 503.0105, L501.5200, L500.4050, L500.4100, L3300.8000, L501.9940, L501.9520, L100.0100 #### [facility] [address] [place], [place], [id number] Blood urea nitrogen (BUN)/cr eatinine ratioOrdered By: Alyssia La on 07-13-2024 Urea nitrogen/Creatinine [Mass ratio] 11.9 mg/mg 04-18 [facility] CBC W/Diff, Automatedon 06-30 Absolute Lymph 4.54 X10 3/uL High 0.83-4.51 [facility] Comment on above: Performed By: #### L 503.0105, L501.5200, L500.4050, L500.4100, L3300.8000, L501.9940, L501.9520, L100.0100 #### [facility] [address] [place], [address] Absolute Neut 6.7 X10 3/uL Normal 2.0-7.7 [facility] Comment on above: Performed By: #### L 503.0105, L501.5200, L500.4050, L500.4100, L3300.8000, L501.9940, L501.9520, L100.0100 #### [facility] [address] [place], [place], [id number] IG% 0.400 Normal 0.0-0.9 [facility] Comment on above: Result Comment: IG% - Immature Granulocytes (promyelocytes, myelocytes and metamyelocytes) > 1% indicates that a LEFT SHIFT is Present. Performed By: #### L 503.0105, L501.5200, L500.4050, L500.4100, L3300.8000, L501.9940, L501.9520, L100.0100 #### [facility] [address] [place], [address] Nucleated RBC (Bld) [#/Vol] 0 10*3/uL Normal 0-5 [facility] Comment on above: Performed By: #### L 503.0105, L501.5200, L500.4050, L500.4100, L3300.8000, L501.9940, L501.9520, L100.0100 #### [facility] [address] [place], [place], [phone] RDW SD 45.0 fl High 35.1-43.9 [facility] Comment on above: Performed By: #### L 503.0105, L501.5200, L500.4050, L500.4100, L3300.8000, L501.9940, L501.9520, L100.0100 #### [facility] [address] [place], [address] Carbon dioxide measurementOr dered By: Alyssia La on 07-13-2024 CO2 [Moles/Vol] 27.0 mmol/L Normal 21.0-32.0 [facility] Comment on above: Performed By: #### L 503.0105, L501.5200, L500.4050, L500.4100, L3300.8000, L501.9940, L501.9520, L100.0100 #### [facility] [address] [place], [place], [address] Chloride measurementOrdered By: Alyssia La on 07-13-2024 Chloride [Moles/Vol] 104 mmol/L Normal 98-107 [facility] Comment on above: Performed By: #### L 503.0105, L501.5200, L500.4050, L500.4100, L3300.8000, L501.9940, L501.9520, L100.0100 #### [facility] [address] [place], [address] Comprehensive Metabolic Prof ilon 07-13-2024 ALK P 68 U/L Normal 45-117 [facility] Comment on above: Performed By: #### L 503.0105, L501.5200, L500.4050, L500.4100, L3300.8000, L501.9940, L501.9520, L100.0100 #### [facility] [address] [place], [address] BUN/CRE 11.9 RATIO Normal 10-20 [facility] Comment on above: Performed By: #### L 503.0105, L501.5200, L500.4050, L500.4100, L3300.8000, L501.9940, L501.9520, L100.0100 #### [facility] [address] [place], [address] CA,Total 9.2 mg/dL Normal 8.5-10.1 [facility] Comment on above: Performed By: #### L 503.0105, L501.5200, L500.4050, L500.4100, L3300.8000, L501.9940, L501.9520, L100.0100 #### [facility] [address] [place], [address] EST GFR - AA 76 mL/min Normal >60 [facility] Comment on above: Result Comment: Afri can [place] GFR Calc Performed By: #### L 503.0105, L501.5200, L500.4050, L500.4100, L3300.8000, L501.9940, L501.9520, L100.0100 #### [facility] [address] [place], [address] GAP 3 Low 5-15 [facility] Comment on above: Performed By: #### L 503.0105, L501.5200, L500.4050, L500.4100, L3300.8000, L501.9940, L501.9520, L100.0100 #### [facility] [address] [place], [address] GFR/1.73 sq M.predicted among non-blacks MDRD (S/P/Bld) [Vol rate/Area] 63 mL/min/{1.73_m2} Normal >60 [facility] Comment on above: Result Comment: Non- GFR Calc Performed By: #### L 503.0105, L501.5200, L500.4050, L500.4100, L3300.8000, L501.9940, L501.9520, L100.0100 #### [facility] [address] [place], [address] T PROT 7.6 g/dL Normal 6.4-8.2 [facility] Comment on above: Performed By: #### L 503.0105, L501.5200, L500.4050, L500.4100, L3300.8000, L501.9940, L501.9520, L100.0100 #### [facility] [address] [place], [address] Comprehensive Metabolic Prof ilOrdered By: Alyssia La on 07-13-2024 AST [Catalytic activity/Vol] 20 U/L Normal 15-37 [facility] Comment on above: Slight Hemolysis, Re sult may be falsely increased. Result Comment: Slig ht Hemolysis, Result may be falsely increased. Performed By: #### L 503.0105, L501.5200, L500.4050, L500.4100, L3300.8000, L501.9940, L501.9520, L100.0100 #### [facility] [address] [place], [address] Diagnostic total prostate sp ecific antigen (PSA) measurementOrdered By: Alyssia La on 07-13-2024 Prostate Specific Antigen Total 0.96 ng/mL 0.0-4.0 [facility] Comment on above: This test was perfor med using the TPSA assay method for [facility] system. Values obtained with differentassay methods cannot be used interchangably.When changing PSA assays in the course of monitoring apatient, additional sequential testing should be carriedout to confirm baseline values. Eosinophil percentageOrdered By: Alyssia La on 07-13-2024 Eosinophils/100 WBC (Bld) 0.5 % Normal 0-5 [facility] Comment on above: Performed By: #### L 503.0105, L501.5200, L500.4050, L500.4100, L3300.8000, L501.9940, L501.9520, L100.0100 #### [facility] [address] [place], [place], [address] Erythrocyte distribution wid th ratioOrdered By: Alyssia La on 07-13-2024 Erythrocyte distribution width (RBC) [Ratio] 14.0 % Normal 11.6-14.6 [facility] Comment on above: Performed By: #### L 503.0105, L501.5200, L500.4050, L500.4100, L3300.8000, L501.9940, L501.9520, L100.0100 #### [facility] [address] [place], [place], [id number] Erythrocyte distribution wid th standard deviationOrdered By: Alyssia La on 07-13-2024 Erythrocyte distribution width (RBC) [Entitic vol] 45.0 fL High 35.1-43.9 [facility] Estimated glomerular filtrat ion rate (GFR) AmericanOrdered By: Alyssia La on 07-13-2024 Estimated GFR (MDRD) Amer 76 mL/min >60 [facility] Comment on above: GFR Calc Glomerular filtration rate ( GFR) estimationOrdered By: Alyssia La on 07-13-2024 Estimated GFR (MDRD) Non-Af Amer 63 mL/min >60 [facility] Comment on above: Non- GFR Calc Glucose measurementOrdered B y: Alyssia La on 07-13-2024 Glucose [Mass/Vol] 107 mg/dL High 74-106 [facility] Comment on above: Fasting Glucose resu lt from 100 to 125 mg/dL suggests IMPAIRED HOMEOSTASIS per A.D.A. criteria. Result Comment: Fast ing Glucose result from 100 to 125 mg/dL suggests IMPAIRED HOMEOSTASIS per A.D.A. criteria. Performed By: #### L 503.0105, L501.5200, L500.4050, L500.4100, L3300.8000, L501.9940, L501.9520, L100.0100 #### [facility] [address] [place], [address] Hemoglobin measurementOrdere d By: Alyssia La on 07-13-2024 Hemoglobin (Bld) [Mass/Vol] 16.4 g/dL Normal 13.0-16.5 [facility] Comment on above: Performed By: #### L 503.0105, L501.5200, L500.4050, L500.4100, L3300.8000, L501.9940, L501.9520, L100.0100 #### [facility] [address] [place], [place], [phone] (332) High density lipoprotein (HD L) measurementOrdered By: Alyssia La on 07-13-2024 Cholesterol in HDL [Mass/Vol] 37 mg/dL Low [facility] Comment on above: The drugs N-Acetylcy steine and Metamizole may falsely depress this assay. Reference Range HDL <40 mg/dL Low HDL Cholesterol HDL >or= 60 mg/dL High HDL Cholesterol Result Comment: The drugs N-Acetylcysteine and Metamizole may falsely depress this assay. Reference Range HDL <40 mg/dL Low HDL Cholesterol HDL >or= 60 mg/dL High HDL Cholesterol Performed By: #### L 503.0105, L501.5200, L500.4050, L500.4100, L3300.8000, L501.9940, L501.9520, L100.0100 #### [facility] [address] [place], [place], [phone] (140) Immature granulocytes/100 WB C Auto (Bld)Ordered By: Alyssia La on 07-13-2024 Immature granulocytes/100 WBC (Bld) 0.400 % 0.0-0.9 [facility] Comment on above: IG% - Immature Granu locytes (promyelocytes, myelocytes and metamyelocytes) > 1% indicates that a LEFT SHIFT is Present. Lipid Profileon 07-13-2024 Cholesterol in VLDL [Mass/Vol] 57 mg/dL High 5-40 [facility] Comment on above: Performed By: #### L 503.0105, L501.5200, L500.4050, L500.4100, L3300.8000, L501.9940, L501.9520, L100.0100 #### [facility] [address] [place], [address] Low density lipoprotein (LDL ) cholesterol measurementOrdered By: Alyssia aL on 07-13-2024 Cholesterol in LDL [Mass/Vol] 151 mg/dL High 0-130 [facility] Comment on above: Performed By: #### L 503.0105, L501.5200, L500.4050, L500.4100, L3300.8000, L501.9940, L501.9520, L100.0100 #### [facility] [address] [place], [address] Lymphocytes Auto (Unsp spec) [#/Vol]Ordered By: Alyssia La on 07-13-2024 Lymphocytes (Bld) [#/Vol] 4.54 10*3/uL High 0.83-4.51 [facility] MCV (mean corpuscular volume ) determinationOrdered By: Alyssia La on 07-13-2024 MCV (RBC) [Entitic vol] 88.5 fL Normal 80-94 [facility] Comment on above: Performed By: #### L 503.0105, L501.5200, L500.4050, L500.4100, L3300.8000, L501.9940, L501.9520, L100.0100 #### [facility] [address] [place], [place], [phone] Magnesium measurementOrdered By: Alyssia La on 07-13-2024 Magnesium [Mass/Vol] 2.5 mg/dL Normal 1.6-2.6 [facility] Comment on above: Slight Hemolysis, Re sult may be falsely increased. Result Comment: Slig ht Hemolysis, Result may be falsely increased. Performed By: #### L 503.0105, L501.5200, L500.4050, L500.4100, L3300.8000, L501.9940, L501.9520, L100.0100 #### [facility] [address] [place], [address] Mean corpuscular hemoglobin (MCH) determinationOrdered By: Alyssia La on 07-13-2024 MCH (RBC) [Entitic mass] 29.4 pg Normal 27.0-32.0 [facility] Comment on above: Performed By: #### L 503.0105, L501.5200, L500.4050, L500.4100, L3300.8000, L501.9940, L501.9520, L100.0100 #### [facility] [address] [place], [place], [id number] Mean corpuscular hemoglobin concentration (MCHC) determinationOrdered By: Alyssia La on 07-13-2024 MCHC (RBC) [Mass/Vol] 33.3 g/dL Normal 32-36 [facility] Comment on above: Performed By: #### L 503.0105, L501.5200, L500.4050, L500.4100, L3300.8000, L501.9940, L501.9520, L100.0100 #### [facility] [address] [place], [address] Mean platelet volume determi nationOrdered By: Alyssia La on 07-13-2024 Platelet mean volume (Bld) [Entitic vol] 10.5 fL Normal 6.2-12.0 [facility] Comment on above: Performed By: #### L 503.0105, L501.5200, L500.4050, L500.4100, L3300.8000, L501.9940, L501.9520, L100.0100 #### [facility] [address] [place], [address] Monocyte percentageOrdered B y: Alyssia La on 07-13-2024 Monocytes/100 WBC (Bld) 6.5 % Normal 0-10 [facility] Comment on above: Performed By: #### L 503.0105, L501.5200, L500.4050, L500.4100, L3300.8000, L501.9940, L501.9520, L100.0100 #### [facility] [address] [facility] [place], [address] Neutrophil percentageOrdered By: Alyssia La on 07-13-2024 Neutrophils/100 WBC (Bld) 54.8 % Normal 47-70 [facility] Comment on above: Performed By: #### L 503.0105, L501.5200, L500.4050, L500.4100, L3300.8000, L501.9940, L501.9520, L100.0100 #### [facility] [address] [facility] [place], [address] Nucleated red blood cell per centageOrdered By: Alyssia aL on 07-13-2024 Nucleated RBC/100 WBC (Bld) [Ratio] 0 % 0-5 [facility] PSA,Total- Diagnosticon 06-30 PSA, DIAGNOSTIC 0.96 ng/mL Normal 0.0-4.0 [facility] Comment on above: Result Comment: This test was performed using the TPSA assay method for the [employer] chemistry system. Values obtained with different assay methods cannot be used interchangably. When changing PSA assays in the course of monitoring a patient, additional sequential testing should be carried out to confirm baseline values. Performed By: #### L 503.0105, L501.5200, L500.4050, L500.4100, L3300.8000, L501.9940, L501.9520, L100.0100 ####[facility] [address] [place], [place], [phone] Platelet countOrdered By: Matthias La on 07-13-2024 Platelets (Bld) [#/Vol] 320 10*3/uL Normal 150-450 [facility] Comment on above: Performed By: #### L 503.0105, L501.5200, L500.4050, L500.4100, L3300.8000, L501.9940, L501.9520, L100.0100 #### [facility] [address] [place], [place], [phone] Potassium measurementOrdered By: Alyssia La on 07-13-2024 Potassium [Moles/Vol] 4.2 mmol/L Normal 3.5-5.1 [facility] Comment on above: Slight Hemolysis, Re sult may be falsely increased. Result Comment: Slig ht Hemolysis, Result may be falsely increased. Performed By: #### L 503.0105, L501.5200, L500.4050, L500.4100, L3300.8000, L501.9940, L501.9520, L100.0100 #### [facility] [address] [place], [place], [id number] Serum anion gap measurementO rdered By: Alyssia La on 07-13-2024 Anion gap [Moles/Vol] 3 mmol/L Low 5-15 [facility] Serum globulin measurementOr dered By: Alyssia La on 07-13-2024 Globulin (S) [Mass/Vol] 3.6 g/dL Normal 2.2-4.2 [facility] Comment on above: Performed By: #### L 503.0105, L501.5200, L500.4050, L500.4100, L3300.8000, L501.9940, L501.9520, L100.0100 #### [facility] [address] [place], [address] Serum or plasma alanine shaffer otransferase (ALT) measurementOrdered By: Alyssia La on 07-13-2024 ALT [Catalytic activity/Vol] 22 U/L Normal 16-61 [facility] Comment on above: Performed By: #### L 503.0105, L501.5200, L500.4050, L500.4100, L3300.8000, L501.9940, L501.9520, L100.0100 #### [facility] [address] [place], [address] Serum or plasma albumin batool urement (mass/volume)Ordered By: Alyssia La on 07-13-2024 Albumin [Mass/Vol] 4.0 g/dL Normal 3.2-5.0 [facility] Comment on above: Performed By: #### L 503.0105, L501.5200, L500.4050, L500.4100, L3300.8000, L501.9940, L501.9520, L100.0100 #### [facility] [address] [place], [address] Serum or plasma alkaline nixon sphatase measurementOrdered By: Alyssia La on 07-13-2024 ALP [Catalytic activity/Vol] 68 U/L 45-117 [facility] Serum or plasma calcium batool urement (mass/volume)Ordered By: Alyssia La on 07-13-2024 Calcium [Mass/Vol] 9.2 mg/dL 8.5-10.1 [facility] Serum or plasma cholesterol measurement (mass/volume)Ordered By: Alyssia La on 07-13-2024 Cholesterol [Mass/Vol] 245 mg/dL High 200 [facility] Comment on above: <200 mg/dL Desirable 200-240 mg/dL Borderline >240 mg/dL High Risk Result Comment: <200 mg/dL Desirable 200-240 mg/dL Borderline >240 mg/dL High Risk Performed By: #### L 503.0105, L501.5200, L500.4050, L500.4100, L3300.8000, L501.9940, L501.9520, L100.0100 #### [facility] [address] [place], [place], [phone] (943) Serum or plasma creatinine m easurement (mass/volume)Ordered By: Alyssia La on 07-13-2024 Creatinine [Mass/Vol] 1.26 mg/dL Normal 0.70-1.30 [facility] Comment on above: The validity of the calculated GFR & GFRAA in patients over 70 years has not been determined. Clinical correlation is essential. Result Comment: The validity of the calculated GFR GFRAA in patients over 70 years has not been determined. Clinical correlation is essential. Performed By: #### L 503.0105, L501.5200, L500.4050, L500.4100, L3300.8000, L501.9940, L501.9520, L100.0100 #### [facility] [address] [place], [place], [phone] Serum or plasma urea nitroge n measurement (mass/volume)Ordered By: Alyssia La on 07-13-2024 Urea nitrogen [Mass/Vol] 15 mg/dL Normal 7-18 [facility] Comment on above: Performed By: #### L 503.0105, L501.5200, L500.4050, L500.4100, L3300.8000, L501.9940, L501.9520, L100.0100 #### [facility] [address] [place], [place], [phone] Sodium levelOrdered By: Mukund La on 07-13-2024 Sodium [Moles/Vol] 135 mmol/L Low 136-145 [facility] Comment on above: Performed By: #### L 503.0105, L501.5200, L500.4050, L500.4100, L3300.8000, L501.9940, L501.9520, L100.0100 #### [facility] [address] [place], [place], [id number] TSH QnOrdered By: Alyssia xavier on 07-13-2024 Thyroid Stimulating Hormone (TSH) 0.769 uIU/mL 0.358-3.740 [facility] Thiamine [Mass/Vol]Ordered B y: Alyssia La on 07-13-2024 Whole Blood Vitamin B1 Level 145.9 nmol/L 66.5-200.0 [facility] Comment on above: Performed at: [address] [id number] Director: Genaro Amador MD, Phone: [phone] Thyroid Stim Hormone (TSH)on 07-13-2024 TSH 0.769 uIU/mL Normal 0.358-3.740 [facility] Comment on above: Performed By: #### L 503.0105, L501.5200, L500.4050, L500.4100, L3300.8000, L501.9940, L501.9520, L100.0100 ####[facility] [address] [place], [place], [id number] Total proteinOrdered By: Inderjit La on 07-13-2024 Protein [Mass/Vol] 7.6 g/dL 6.4-8.2 [facility] Triglycerides measurementOrd ered By: Alyssia La on 07-13-2024 Triglyceride [Mass/Vol] 284 mg/dL High [facility] Comment on above: The drugs N-Acetylcy steine and Metamizole may falsely depress this assay.Serum Triglycerides Reference Interval Normal <150 mg/dL Borderline high 150 - 199 mg/dL High 200 - 499 mg/dL Very High > or = 500 mg/dL Result Comment: The drugs N-Acetylcysteine and Metamizole may falsely depress this assay. Serum Triglycerides Reference Interval Normal <150 mg/dL Borderline high 150 - 199 mg/dL High 200 - 499 mg/dL Very High > or = 500 mg/dL Performed By: #### L 503.0105, L501.5200, L500.4050, L500.4100, L3300.8000, L501.9940, L501.9520, L100.0100 #### [facility] [address] [place], [address] Very low density lipoprotein (VLDL) cholesterol measurementOrdered By: Alyssia La on 07-13-2024 VLDL Cholesterol 57 mg/dL High 5-40 [facility] Vitamin B12 measurementOrder ed By: Alyssia La on 07-13-2024 Cobalamin (Vitamin B12) [Mass/Vol] 286 pg/mL Normal 211-911 [facility] Comment on above: Performed By: #### L 503.0105, L501.5200, L500.4050, L500.4100, L3300.8000, L501.9940, L501.9520, L100.0100 #### [facility] [address] [place], [address] White blood cell (WBC) count Ordered By: Alyssia La on 07-13-2024 WBC (Bld) [#/Vol] 12.2 10*3/uL High 4.4-11.0 [facility] Comment on above: Performed By: #### L 503.0105, L501.5200, L500.4050, L500.4100, L3300.8000, L501.9940, L501.9520, L100.0100 #### [facility] [address] [place], [address] Internal Medicine Office Vis iton 07-12-2024 Internal Medicine Office Visit [facility] [address] [place] [address] [place] [address] OFFICE VISIT Date of Service: 07/13/24 MR#: [id number] Acct: [id number] Name: RO DE LA ROSA Rep #: [id number] : 1965 Provider: Dr. Alyssia elizabeth MD Age/Sex: 58/M Location: [facility] Status: Signed with Addenda ADDENDUM by Dr. 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 EST CARE - PPW SENT Chief Complaint: est care Annealer Helper Required: No Accompanied by: Is patient in pain?: Yes (hip , back ) Pain scale (1-10): 5 Allergies lisinopril Adverse Reaction (Mild, Verified 07/13/24 09:34) dry mouth acetaminophen (From Vicodin) Adverse Reaction (Verified 07/13/24 09:34) Nausea hydrocodone (From Vicodin) Adverse Reaction (Verified 07/13/24 09:34) Nausea Medications ???Medication ???Instructions ???Recorded ???Confirmed ???Type ibuprofen 200 mg tablet 200 mg PO Q6H PRN 07/13/24 07/13/24 History PFSH Medical History Peptic ulcer hemorrhage History of tumor Vision problems Head ache Back problem Surgical History History of hip surgery History of tonsillectomy Hx of appendectomy Family History Mother Alcoholism Arthritis Cancer cervical Hypertension Grandfather Alcoholism Myocardial infarction, Onset Age: 50 Hypertension Liver disease Social History (Updated 07/13/24 @ 10:[address] 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 He hasn't had a PCP in several years. He is due for some routine blood work and screening. He doesn't want any immunizations. He does smoke and doesn't want to quit at this time. He doesn't take any prescription medications. He reports he is eating healthy and staying active. The patient's reports that he has episodes where he will 'black out.' She reports he will start staring through you. He reports he does feel it coming on, stating he will get a bit numb before it happens. He doesn't realize he stops responding until after it is over. She reports it will last a few seconds and then resolves on its own. His states, however, after resolution, he will be very emotional and confused about the situation. He reports when he first comes back, he doesn't know where he is, he feels tired and then will just start crying. It has been going on for around a year and a half and has occurred about 12 times in that time period. His last episode was around 1 month ago. They report it is sporadic in terms of when it happens. She reports it usually happens when he is stressed out. He never saw anybody for this before stating he doesn't like doctors. He denies any history of PTSD or head trauma. He denies any struggles with his mental health stating he doesn't feel depressed or anxious, but does get emotional just speaking of the episodes. He does have a history of alcoholism, but stopped drinking in 2010. The patient takes excessive amounts of ibuprofen stating he takes 6 tablets every 8 hours. He reports he takes it for pain and headaches. The patient also has concerns about erectile dysfunction. He reports he has trouble getting an erection. He does get morning erections, but states otherwise, he cannot get one. He reports it doesn't last longer than him urinating. He still has the libido. He denies any urinary symptoms, but his reports he does get up a few times to urinate at night. He denies any testicular pain or swelling. He reports he bought some ED medication from a company called [employer], but never started it. ROS Const Constitutional: Positive for headache(s) (occasional); No body ache, chills, excessive sweating, fatigue, fever(s), (more content not included)... Normal [facility] Emergency Department Summary on 03-15-[address] [facility] Medical Records Department [address] [place] [address] Emergency Department Summary 03/15/24 MR#: [id number] Acct: [id number] Name: RO DE LA ROSA Rep #: [id number] : 1965 58 From: Cezar Pace MD PCP: Care Physician,No Primary Status:REG ER Location: ED HPI History of Present Illness Chief Complaint: Lower Extremity Injury Detail of Chief Complaint: Injury left foot due to blunt trauma 1 week ago Informant: patient and spouse/S.O. Occured/Mechanism Mechanism/Context: Yes injury and Yes blunt trauma Comment: Patient would fell on his foot. He complains of pain and swelling MTP joint of the great toe Onset/Context/Timing Onset: Weeks (1.0) Context: Sudden Onset Timing: Continuous Quality of Pain: Dull and Aching Location: Proximity of the left great toe Current Severity: Mild Maximum Severity: Moderate Worsened by: Weightbearing Relieved by: Nothing Associated Symptoms Associated Symptoms: Negative for Parasthesia, Weakness or Loss of Funtion Narrative Narrative: Patient is a 58-year-old male. He has no significant past medical history on no medication. He denies paresthesia, anesthesia motors. Denies prior injury. He has no history of gout or pseudogout. Prior similar symptoms: No Recent Illness/Hospitalization: No PFSH PFSH Medical History no medical history no medical history Home Medications ???Medication ???Instructions ???Recorded ???Last Taken ???Type lisinopril 10 mg tablet 10 mg PO DAILY #30 tabs 03/15/24 Unknown Rx Allergy/AdvReac Type Severity Reaction Status Date / Time acetaminophen (From Vicodin) AdvReac Nausea Verified 03/15/24 09:46 hydrocodone (From Vicodin) AdvReac Nausea Verified 03/15/24 09:46 Social History (Updated 03/15/24 @ 10:[address] Cezar Pace MD) household members: spouse Smoking Status: Current every day smoker tobacco type: cigarettes ROS ROS ED Musculoskeletal Musculoskeletal: Reports other Details: Left foot pain proximity of left great toe Integumentary Reports other Details: Slight bruising. Otherwise negative Hematologic/Lymphatic Hematologic/Lymphatic: Reports easy bleeding and easy bruising EXAM Physical Exam Const Vital Signs: 03/15/24 09:47 Temperature 97.6 F L Temperature Source Temporal Pulse Rate 79 Respiratory Rate 18 Blood Pressure 185/84 H Blood Pressure Mean 117 Pulse Ox 100 Oxygen Delivery Method Room Air Positive well nourished and well developed General Appearance ED: well developed and NAD HEENT normocephalic and atraumatic Resp normal respiratory effort Cardio regular rate and regular rhythm Extremity full ROM; Negative for normal to inspection Extremity Narrative: There is slight swelling over the left great toe. There is discoloration of the dorsal surface. He has pain ovation over the great toe and second and third toe. DP and PT pulse are palpable. Patient does not have stigmata PAD. Neuro oriented x3, CN's II-XII intact bilaterally and moves all extremities Psych mental status grossly normal Skin Skin Narrative: Bruising as previously described MDM MDM MDM Narrative Medical decision making narrative: With patient having pain for 1 week and difficulty ambulating will obtain x-ray to rule out contusion versus fracture. Radiography Chest X-Ray - ED: Read by ED Physician (Three-view x-ray reveals no fracture, subluxation dislocation or foreign body.) Diagnostic Testing: Clinical Impression(s) from Imaging Studies Foot X-Ray 03/15/24 10:01 IMPRESSION: Normal x-ray examination of the foot. Electronically Signed: Augustine Bowman MD at 10:36 EDT , Discharge Plan Triage Chief Complaint: Lower Extremity Injury ED Provider: Cezar Pace Dx/Rx/DC Orders Clinical Impression: Contusion of left foot, initial encounter, Elevated blood-pressure reading, without diagnosis of hypertension Instructions: ED Foot Contusion, ED Hypertension New Begin Treatment Prescriptions: New lisinopril 10 mg tablet 10 mg PO DAILY Qty: 30 0RF Primary Care Provider: Care Physician,No Primary Referrals: Adam Ritter MD [Med Staff - Bone Plant Supervisor] - 1-2 Weeks Care Physician,No Primary [Primary Care Provider] - Print Language: French Disposition Disposition: Home, Self Care What to do if you have Problems For any increased pain, shortness of breath, bleeding, nausea or vomiting, chest pain, or any unexpected problems, contact your Primary Care Provider. Call [facility] ([phone]) or report to the closest Emergency Room. Call 911 if necessary. 03/15/24 1132 Cosigner Sign (more content not included)... Normal [facility] Foot min 3 Viewson 4 Foot min 3 Views [facility] Imaging Services [address] [place] [address] Foot min 3 Views MR#: [id number] Acct: [id number] Name: RO DE LA ROSA Rep #: [id number] : 1965 M 58 From: Augustine aldridge MD PCP: Care Physician,No Primary Status: PRE ER Study: Foot min 3 Views Date of Exam: 03/15/24 Exam# [id number] Ordering Dr: Cezar Pace MD [id number] STUDY: X-RAY - LEFT FOOT CLINICAL: Male, 58 years old. Injury/Pain TECHNIQUE: 3 view(s) of the foot. COMPARISON: None. FINDINGS: Normal talus, calcaneus, and tarsal bones. Normal visualized subtalar, talonavicular, calcaneocuboid, tarsal and tarsometatarsal articulations. Normal metatarsi. Normal metatarsophalangeal joint of the great toe. There is a bipartite tibial sesamoid. Normal interphalangeal joint of the great toe. Normal phalanges of the great toe. Normal second through fifth metatarsophalangeal joints. Normal interphalangeal joints and phalanges of the lesser toes. The soft tissue structures are unremarkable. RAD/Foot min 3 Views IMPRESSION: Normal x-ray examination of the foot. Electronically Signed: Augustine Bowman MD at 10:36 EDT , CC: Dr. Cezar Pace MD; No Primary Care Physician Craft Artist: Signed Normal [facility] Vital Signs Date Time Vital Sign Value Performing Clinician Faci raz 12-07-2024 11:21-0400 Body height 162.[address] Alyssia La MD Work Phone: [facility] 12-07-2024 11:21-0400 Body mass index (BMI) [Ratio] 27.5 kg/m2 Dr. Alyssia La MD Work Phone: [facility] 12-07-2024 11:21-0400 Body temperature 98.2 [degF] Dr. Alyssia La MD Work Phone: [facility] 12-07-2024 11:21-0400 Body weight 72.[address] Alyssia La MD Work Phone: [facility] 12-07-2024 11:21-0400 Diastolic blood pressure 78 mm[Hg] Dr. Alyssia La MD Work Phone: [facility] 12-07-2024 11:21-0400 Heart rate 74 /min Dr. Alyssia La MD Work Phone: [facility] 12-07-2024 11:21-0400 Respiratory rate 16 /min Dr. Alyssia La MD Work Phone: [facility] 12-07-2024 11:21-0400 SaO2% (BldA) [Mass fraction] 93 % Dr. Alyssia La MD Work Phone: [facility] 12-07-2024 11:21-0400 Systolic blood pressure 114 mm[Hg] Dr. Alyssia La MD Work Phone: [facility] 10-19-2024 10:46-0400 Body mass index (BMI) [Ratio] 28.3 kg/m2 Dr. Alyssia La MD Work Phone: [facility] 10-19-2024 10:46-0400 Body temperature 99 [degF] Dr. Alyssia La MD Work Phone: [facility] 10-19-2024 10:46-0400 Body weight 74.[address] Alyssia La MD Work Phone: [facility] 10-19-2024 10:46-0400 Diastolic blood pressure 64 mm[Hg] Dr. Alyssia La MD Work Phone: [facility] 10-19-2024 10:46-0400 Heart rate 112 /min Dr. Alyssia La MD Work Phone: [facility] 10-19-2024 10:46-0400 Respiratory rate 16 /min Dr. Alyssia La MD Work Phone: [facility] 10-19-2024 10:46-0400 SaO2% (BldA) [Mass fraction] 95 % Dr. Alyssia La MD Work Phone: [facility] 10-19-2024 10:46-0400 Systolic blood pressure 118 mm[Hg] Dr. Alyssia La MD Work Phone: [facility] 09-10-2024 09:30-0400 Body temperature 97.4 [degF] No Primary Care Physician [facility] 09-10-2024 09:30-0400 Diastolic blood pressure 81 mm[Hg] No Primary Care Physician [facility] 09-10-2024 09:30-0400 Heart rate 77 /min No Primary Care Physician [facility] 09-10-2024 09:30-0400 Respiratory rate 16 /min No Primary Care Physician [facility] 09-10-2024 09:30-0400 SaO2% (BldA) [Mass fraction] 100 % No Primary Care Physician [facility] 09-10-2024 09:30-0400 Systolic blood pressure 106 mm[Hg] No Primary Care Physician [facility] 09-10-2024 08:01-0400 Body height 162.56 cm No Primary Care Physician [facility] 09-10-2024 08:01-0400 Body mass index (BMI) [Ratio] 27.3 kg/m2 No Primary Care Physician [facility] 09-10-2024 08:01-0400 Body weight 72.2 kg No Primary Care Physician [facility] 07-20-2024 11:56-0500 Body height 162.56 cm No Primary Care Physician [facility] 07-20-2024 11:56-0500 Body mass index (BMI) [Ratio] 27.9 kg/m2 No Primary Care Physician [facility] 07-20-2024 11:56-0500 Body weight 73.93 kg No Primary Care Physician [facility] 07-13-2024 09:47-0500 Body mass index (BMI) [Ratio] 27.9 kg/m2 No Primary Care Physician [facility] 07-13-2024 09:47-0500 Body temperature 97.7 [degF] No Primary Care Physician [facility] 07-13-2024 09:47-0500 Body weight 73.93 kg No Primary Care Physician [facility] 07-13-2024 09:47-0500 Diastolic blood pressure 82 mm[Hg] No Primary Care Physician [facility] 07-13-2024 09:47-0500 Heart rate 88 /min No Primary Care Physician [facility] 07-13-2024 09:47-0500 Respiratory rate 16 /min No Primary Care Physician [facility] 07-13-2024 09:47-0500 SaO2% (BldA) [Mass fraction] 99 % No Primary Care Physician [facility] 07-13-2024 09:47-0500 Systolic blood pressure 132 mm[Hg] No Primary Care Physician [facility] Encounters Encounter Date Encounter Type Care Provider Facility Start: 12-07-2024 End: 12-07-[address] Alyssia La MD -[facility] Work Phone: Start: 12-07-2024 End: 12-07-[address] Alyssia La MD Work Phone: [facility] Work Phone: Start: 10-19-2024 End: 10-19-[address] Alyssia La MD -[facility] Work Phone: Start: 10-19-2024 End: 10-19-2024 ambulatory Alyssia La [place] [place]: 09-10-2024 ambulatory Chele Gordillo lity:[facility] Start: 09-10-2024 Non-patient / Non-visit Dr. Chele Stauffer MD -[facility] Start: 09-10-2024 End: 09-10-2024 Admission to same day surgery center Dr. Chele Stauffer MD -Endoscopy Work Phone: Start: 09-10-2024 End: 09-10-2024 ambulatory No Primary Care Physician [facility] Work Phone: Start: 08-23-2024 End: 08-23-2024 ambulatory No Primary Care Physician [facility] Work Phone: Start: 08-23-2024 End: 08-23-[address] Alyssia La MD -Pulmonary Services/Neurology Work Phone: Start: 08-23-2024 End: 08-23-2024 ambulatory Alyssia La Facility:[facility] Start: 08-19-2024 End: 08-19-[address] Alyssia La MD -[facility] Work Phone: Start: 08-19-2024 End: 08-19-2024 ambulatory Alyssia La Facility:[facility] Start: 07-20-2024 Non-patient / Non-visit No Primary Care Physician -[facility] Work Phone: Start: 07-20-2024 ambulatory Alyssia La Facility :[facility] Start: 07-13-2024 End: 07-13-[address] Alyssia La MD -Laboratory, [facility] Start: 07-13-2024 End: 07-13-[address] Alyssia La MD -[facility] Work Phone: Start: 07-13-2024 End: 07-13-2024 ambulatory Alyssia La [place] Start: 07-13-2024 End: 07-13-2024 ambulatory Alyssia Daiglelay Facility:[facility] Start: 03-15-2024 End: 03-15-2024 Emergency department patient visit Cezar Pcae Facility:[facility] Procedures Date Procedure Procedure Detail Performing Clinician Start: 09-10-2024 Colonoscopy No Primary Care Physician Start: 08-19-2024 MRI of brain with contrast No Primary Care Physician Plan of Treatment Date Care Activity Detail Author Start: 10-19-2024 Patient referral [facility] Work Phone: Start: 09-10-2024 Colonoscopy flx dx w/collj spec when pfrmd DIAGNOSTIC COLONOSCOPY [facility] Start: 09-10-2024 Patient discharge [facility] Start: 07-13-2024 Patient referral [facility] Work Phone: Start: 07-13-2024 Evaluation of diagnostic study results [facility] Cobalamin (Vitamin B 12) [Mass/volume] in Serum or Plasma [facility] Colonoscopy [facility] Lipid 1996 panel - S deborah or Plasma [facility] Patient referral [facility] Work Phone: Testosterone Free [Mass/volume] in Serum or Plasma [facility] Tobacco use cessatio n education [facility] Tobacco use cessatio n education [facility] Payers Date Payer Category Payer Self-pay 2024 Unknown [id number] Unknown ANTHE[employer] [id number] Unknown [employer] [id number] Unknown [id number] 2.16.8 [id number] Unknown [id number] 2.16.8 [id number] Unknown [id number] 2.16.8 [id number] Unknown [id number] 2.16.8 [id number] Unknown [id number] 2.16.8 [id number] Unknown [id number] 2.16.8 [id number] Unknown [id number] 2.16.8 [id number] Unknown [id number] 2.16.8 [id number] Unknown [id number] 2.16.8 [id number] Unknown [id number] 2.16.8 [id number] Social History Date Type Detail Facility Start: 07-13-2024 End: 09-10-2024 Tobacco smoking status NHIS Smokes tobacco daily (finding) [facility] Start: 09-02-2024 End: 09-10-2024 Sex Male (finding) [facility] Start: 1965 Sex Assigned At Male [facility] Goals Date Patient Goal Desired Activity /State Mental Status Date Assessment Result Facility 09-10-2024 Cognitive function Light Pain [facility] Work Phone: 09-10-2024 Cognitive function Patient Orien tation Person;Place;Time [facility] Work Phone: Clinical Notes 07-13-2024 to 09-10-2024 Note Date & Type Note Facility 09-10-2024 Consult note [facility] 09-10-2024 Evaluation note Diagnosis Onset Date Resolution Encounter for screening for malignant neoplasm of colon acute September 10, 2024 7:39am Episodes of staring noneactive October 19, 2024 10:35am Overuse of medication noneactive Apr il 2024 10:35am Cobalamin deficiency noneactive Apri l 2024 10:35am Erectile dysfunction noneactive A[facility] 2024 10:35am Mixed hyperlipidemia noneactive [facility] 2024 10:35am Anxiety and depression noneactive Ap ril 2024 10:35am Current smoker noneactive September 10:35am Episodes of staring noneactive December 07, 2024 11:06am Overuse of medication noneactive Nov 11:06am Cobalamin deficiency noneactive December 07, 2024 11:06am Erectile dysfunction noneactive December 07, 2024 11:06am Mixed hyperlipidemia noneactive December 07, 2024 11:06am Anxiety and depression noneactive Ju 2024 11:06am Current smoker noneactive December 07, 2024 11:06am [facility] Work Phone: 1(553) 966-395603-14-2025 Consult note [facility] Medical Records Department [address] [place] [address] Anesthesia Postop Eval I 09/10/2415 MR#: [id number] Acct: [id number] Name: RO DE LA ROSA Rep #:[id number] : 1965 58 From: Antonio Hansen PCP: Dr. Alyssia La MD Status:[facility] Race: C Location: [place] [address] Anesthesia: Postop Eval I Current Vital Signs Temperature: 97.2 F Pulse Rate: 88 Blood Pressure: 97/75 Respiratory Rate: 18 Pulse Ox: 96 Oxygen Delivery Method: Room Air Assessment Airway patent: Yes Spontaneous unlabored respirations: Yes Mental status: Asleep nausea: No Vomiting: No Anesthesia Complication: No Fluid Hydration Crystalloid volume administer (ml): 45 Total IV fluid infused: 45 Progress Note Anesthesia document: Postop Eval 1 completed: Yes 09/10/24 0916 > Date _ Antonio Veloz Signature: Date CC: ~ Signed [facility]03-14-2025 Procedure note [facility] Medical Records Department [address] [place] [address] Colonoscopy Report MR#: [id number] Acct: [id number] Name: RO DE LA ROSA Rep #:[id number] : 1965 58 From: Chele hector MD PCP: Dr. Alyssia La MD Status[place] [place] Patient Name: Ro De La Rosa Procedure Date: 09/10/2024 8:48 AM Date of : 1965 Age: 58 Procedure: Colonoscopy Indications: Screening for colorectal malignant neoplasm Providers: Chele Stauffer MD Referring MD: Alyssia La Md Medicines: Propofol per Anesthesia Patient Profile: This is a 58 year old male. Refer to note in patient chart for documentation of history and physical. Last Colonoscopy: none. The patient's first colonoscopy is today. Complications: No immediate complications. Procedure: Pre-Anesthesia Assessment: - Prior to the procedure, a History and Physical was performed, and patient medications and allergies were reviewed. The patient's tolerance of previous anesthesia was also reviewed. The risks and benefits of the procedure and the sedation options and risks were discussed with the patient. All questions were answered, and informed consent was obtained. Prior Anticoagulants: The patient has taken no anticoagulant or antiplatelet agents. After reviewing the risks and benefits, the patient was deemed in satisfactory condition to undergo the procedure. After I obtained informed consent, the scope was passed under direct vision. Throughout the procedure, the patient's blood pressure, pulse, and oxygen saturations were monitored continuously. The Colonoscope was introduced through the anus and advanced to the cecum, identified by appendiceal orifice and ileocecal valve. The colonoscopy was performed without difficulty. The patient tolerated the procedure well. The quality of the bowel preparation was good. The ileocecal valve, appendiceal orifice, and rectum were photographed. Scope In: 8:56:43 AM Scope Withdrawal Time 0 hours 7 minutes 3 seconds Scope Out: 9:07:36 AM Total Procedure Duration Time 0 hours 10 minutes 53 seconds Findings: The entire examined colon appeared normal on direct and retroflexion views. Impression: - The entire examined colon is normal on direct and retroflexion views. - No specimens collected. Recommendation: - Discharge patient to home. - Resume previous diet. - Continue present medications. - Repeat colonoscopy in 10 years for screening purposes. Procedure Code(s): --- Professional --- 71909, Colonoscopy, flexible; diagnostic, including collection of specimen(s) by brushing or washing, when performed (separate procedure) Diagnosis Code(s): --- Professional --- Z12.11, Encounter for screening for malignant neoplasm of colon CPT copyright 2021 [employer]. All rights reserved. The codes documented in this report are preliminary and upon review scheduling coordinator review may be revised to meet current compliance requirements. Chele Stauffer MD 09/10/2024 9:10:27 AM This report has been signed electronically. Number of Addenda: 0 Note Initiated On: 09/10/2024 8:48 AM 09/10/24 0910 Date _ Chele Stauffer MD Cosigner Signature: Date (if indicated) CC: Dr. Alyssia La MD; Dr. Chele Stauffer MD ~ Date Dictated: 09/10/2448 Date Transcribed: Craft Artist: AC Signed [facility]03-14-2025 Procedure note [facility] Medical Records Department [address] [place] [address] Operative Report - CC Letter MR#: [id number] Acct: [id number] Name: RO DE LA ROSA Rep #:[id number] : 1965 58 From: Chele hector MD PCP: Dr. Alyssia La MD Status:[place] [facility] [place] 09/10/2024 Alyssia La Md Re : Colonoscopy procedure for Ro De La Rosa Dear Abhinav This procedure was performed on Tuesday, September 10, 2024. My impressions and recommendations are as follows: Impressions : - The entire examined colon is normal on direct and retroflexion views. - No specimens collected. Recommendations : - Discharge patient to home. - Resume previous diet. - Continue present medications. - Repeat colonoscopy in 10 years for screening purposes. My findings are described in the full procedure note, which is enclosed. If I can be of further assistance, please feel free to contact me at Doctor phone number(s): , Work: . Sincerely, Chele Stauffer MD 09/10/2024 9:10:27 AM This report has been signed electronically. 09/10/24909 Date _ Chele Stauffer MD Cosigner Signature: Date (if indicated) CC: Dr. Alyssia La MD; Dr. Chele Stauffer MD ~ Date Dictated: 09/10/2448 Date Transcribed: Craft Artist: EFREN Signed [facility]03-14-2025 History and physical note [facility] Medical Records Department [address] [place] [address] History & Physical Exam 09/10/24 0846 MR#: [id number] Acct: [id number] Name: RO DE LA ROSA Rep #:[id number] : 1965 58 From: Chele hector MD PCP: Dr. Alyssia La MD Status:REG [facility] [place] Location: [place] [address] HPI - General HPI Narrative RO DE LA ROSA, is a 58 M who presents for screening colonoscopy. This is his first colonoscopy.He denies abdominal pain or blood in the stool. He has no family history of colon cancer. [facility] Medical History Wears glasses No natural teeth Seizures High cholesterol Smoker Peptic ulcer hemorrhage History of tumor Vision problems Head ache Back problem Home Medications ?Medication ?Instructions ?Recorded ?Last Taken ?Type ibuprofen 200 mg tablet 200 mg PO Q6H PRN pain 07/13 Unknown History mecobalamin (vitamin B12) 500 mcg 500 mcg PO QDAY 07/01 07/24 Unknown History chewable tablet lovastatin 20 mg tablet 20 mg PO QPM #30 tabs Unknown Rx Allergy/AdvReac Type Severity Reaction Status Date / Time lisinopril AdvReac Mild dry mouth, Verified 09/10/24 08:01 cough hydrocodone (From Vicodin) AdvReac Nausea Verified 09/10/24 08:01 Family History Mother Alcoholism Arthritis Cancer cervical Hypertension Grandfather Alcoholism Myocardial infarction, Onset Age: 50 Hypertension Liver disease Surgical History History of hip surgery History of tonsillectomy Hx of appendectomy Social History household members: spouse current occupational status: employed 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, 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 Smoking Status: Current every day smoker tobacco type: cigarettes quit status: not considering quitting alcohol intake: former details: quit 01/2011 substance use type: does not use what type of physical activity do you participate in: none seatbelt use: always do you feel safe at home: Yes Past Medical/Surgical History Planned Operation Planned Operative Procedure(s): CSCOPE Previous Hospitalizations/Surgeries HX Hospitalizations: No Any Problems With Anesthesia: No You/Your Family Experience Fever (Hyperthermia) With Anes: No Cholinesterase deficiency: No Cardiovascular Hx Hypertension: Yes (WHITE COAT SYNDROME) Respiratory Hx Sleep Apnea: No Hx Respiratory Tract Infection/Cold (presently): Yes (07/2023, CLEARED UP) Do You Snore Loudly (louder than talking or can be heard): No Do You Often Feel Tired/ Fatigued/ Sleepy Dring Daytime?: No Has Anyone Observed You Stop Breathing During Sleep?: No Result (for STOP score): Negative Smoking Status: Current every day smoker Neurological Does patient have nerve stimulator: No Reproduction : No Miscellaneous Recent Exposure to Contagious Disease: No Allergies lisinopril Adverse Reaction (Mild, Verified 09/10/24 08:01) dry mouth, cough CARRILLO hydrocodone (From Vicodin) Adverse Reaction (Verified 09/10/24 08:01) Nausea Discharge Is Pt Admitted From a Fdc, or a Fpc: No After D/C, Where Do you Plan to Go: Return Home Vital Signs Vital Signs Vital Signs: 09/10/24 08:01 09/10/24 08:01 09/10/24 08:19 Temperature 97.9 F 97.9 F Temperature Source Temporal Pulse Rate 90 90 Respiratory Rate 16 16 Respiratory Pattern Normal Blood Pressure 139/86 H 139/86 H Blood Pressure Mean 103 Blood Pressure Source Monitor Blood Pressure Position Semi-Fowlers Blood Pressure Location Right Arm Pulse Ox 99 99 Oxygen Delivery Method Room Air Weight Weight: 159 lb 2.78 oz Body Mass Index (BMI) 27.3 Physical Exam Const alert and oriented x3 HEENT normocephalic Eyes PERRL Resp normal respiratory effort and normal air movement Cardio regular rate and regular rhythm GI soft to palpation, non-tender and non-distended Extremity normal to inspection Assessment & Plan Assessment/Plan (1) Encounter for screening for malignant neoplasm of colon: PLAN: I explained endoscopy in detail to the patient. I explained the risks including but not limited to stroke or heart attack with anesthesia, perforationof the GI tract, bleeding, infection. I explained that any of these could necessitate further emergency surgery. The patient understands and all questions were answered sufficiently. The patient wishes to proceed with procedure. Chele Stauffer MD Pager: [facility] [address] [place] [address], [address] [place] [address] Office: Surgery Risks - Colonoscopy Risks Include but are not Limited To: Risks include but are not limited to: Bleeding, perforation requiring further surgery, inability to complete colonoscopy requiring barium enema. 09/10/24 0813 Cosigner Signature (if applicable): CC: Dr. Alyssia La MD; Dr. Chele Stauffer MD~ Signed [facility]03-14-2025 [facility] Medical Records Department [address] [place] [address] History Physical Exam 09/10/24 0846 MR#: [id number] Acct: [id number] Name: RO DE LA ROSA Rep #: [id number] : 1965 58 From: Chele Stauffer MD PCP: Dr. Alyssia La MD Status:REG [facility] [place] Location: [place] [address] HPI - General HPI Narrative RO DE LA ROSA, is a 58 M who presents for screening colonoscopy. This is his first colonoscopy. He denies abdominal pain or blood in the stool. He has no family history of colon cancer. [facility] Medical History Wears glasses No natural teeth Seizures High cholesterol Smoker Peptic ulcer hemorrhage History of tumor Vision problems Head ache Back problem Home Medications ???Medication ???Instructions ???Recorded ???Last Taken ???Type ibuprofen 200 mg tablet 200 mg PO Q6H PRN pain 07/13/24 Un known History mecobalamin (vitamin B12) 500 mcg 500 mcg PO QDAY 07/20/24 Unknown History chewable tablet lovastatin 20 mg tablet 20 mg PO QPM #30 tabs 08/05/24 Unk nown Rx Allergy/AdvReac Type Severity Reaction Status Date / Time lisinopril AdvReac Mild dry mouth, Verified 09/10/24 08:01 cough hydrocodone (From Vicodin) AdvReac Nausea Verified 09/10/24 08:01 Family History Mother Alcoholism Arthritis Cancer cervical Hypertension Grandfather Alcoholism Myocardial infarction, Onset Age: 50 Hypertension Liver disease Surgical History History of hip surgery History of tonsillectomy Hx of appendectomy Social History household members: spouse current occupational status: employed 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, 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 Smoking Status: Current every day smoker tobacco type: cigarettes quit status: not considering quitting alcohol intake: former details: quit 01/2011 substance use type: does not use what type of physical activity do you participate in: none seatbelt use: always do you feel safe at home: Yes Past Medical/Surgical History Planned Operation Planned Operative Procedure(s): CSCOPE Previous Hospitalizations/Surgeries HX Hospitalizations: No Any Problems With Anesthesia: No You/Your Family Experience Fever (Hyperthermia) With Anes: No Cholinesterase deficiency: No Cardiovascular Hx Hypertension: Yes (WHITE COAT SYNDROME) Respiratory Hx Sleep Apnea: No Hx Respiratory Tract Infection/Cold (presently): Yes (07/2023, CLEARED UP) Do You Snore Loudly (louder than talking or can be heard): No Do You Often Feel Tired/ Fatigued/ Sleepy Dring Daytime?: No Has Anyone Observed You Stop Breathing During Sleep?: No Result (for STOP score): Negative Smoking Status: Current every day smoker Neurological Does patient have nerve stimulator: No Reproduction : No Miscellaneous Recent Exposure to Contagious Disease: No Allergies lisinopril Adverse Reaction (Mild, Verified 09/10/24 08:01) dry mouth, cough CARRILLO hydrocodone (From Vicodin) Adverse Reaction (Verified 09/10/24 08:01) Nausea Discharge Is Pt Admitted From a Fdc, or a Fpc: No After D/C, Where Do you Plan to Go: Return Home Vital Signs Vital Signs Vital Signs: 09/10/24 08:01 09/10/24 08:01 09/10/24 08:19 Temperature 97.9 F 97.9 F Temperature Source Temporal Pulse Rate 90 90 Respiratory Rate 16 16 Respiratory Pattern Normal Blood Pressure 139/86 H 139/86 H Blood Pressure Mean 103 Blood Pressure Source Monitor Blood Pressure Position Semi-Fowlers Blood Pressure Location Right Arm Pulse Ox 99 99 Oxygen Delivery Method Room Air Weight Weight: 159 lb 2.78 oz Body Mass Index (BMI) 27.3 Physical Exam Const alert and oriented x3 HEENT normocephalic Eyes PERRL Resp normal respiratory effort and normal air movement Cardio regular rate and regular rhythm GI soft to palpation, non-tender and non-distended Extremity normal to inspection Assessment Plan Assessment/Plan (1) Encounter for screening for malignant neoplasm of colon: PLAN: I explained endoscopy in detail to the patient. I explained the risks including but not limited to stroke or heart attack with anesthesia, perforation of the GI tract, bleeding, infection. I explained that any of these could necessitate further emergency surgery. The patient understands and all questions were answered sufficiently. The patient wishes to proceed with procedure. Chele Stauffer MD Pager: [facility] [address] [facility], [address] [place] [address] Office: Berny (more content not included)...[facility]03-14-2025 Consult note [facility] Medical Records Department [address] [place] [address] Pre-Anesthesia Evaluation 09/10/24818 MR#: [id number] Acct: [id number] Name: RO DE LA ROSA Rep #:[id number] : 1965 58 From: Catalino Carbajal MD PCP: Dr. Alyssia La MD Status:REG [place] Y Race: C Location: [place] [address] ASA Classification* ASA Classification ASA Classification: 2 Assessment & Plan Anesthesia* Anesthesia Assessment Anesthesia Assessment: Discussed sedation and/or anesthesia options, risks, benefits, and alternatives with patient/parents/legal guardian/POA. Questions invited. The patient/parents/legal guardian/POA seems to understand and agrees to proceedwith anesthesia plan. Reviewed the physical assessment, medical history, allergy history and patient home medications list prior to surgery/procedure/anesthetic and documented any changes. Performed airway and anesthesia risk assessments. Anesthesia Type Anesthesia Type: MAC Anesthesia Focused Assessment* Temperature: 97.9 F Pulse Rate: 90 Blood Pressure: 139/86 Respiratory Rate: 16 Pulse Ox: 99 Airway Assessment Mouth opens: >3 cm Mallampati Score: II Focused Labs Anesthesia Preop lab: CBC WBC 12.2 K/mm3 (4.4-11.0) H 07/13/24 11: 5 RBC 5.57 M/mm3 (4.6-6.2) 07/13/24 11:07/13/24 Hgb 16.4 g/dL (13.0-16.5) 07/13/24 11:07/13/24 Hct 49.3 % (40-54) 07/13/24 11:00 07/13/24 Plt Count 320 K/mm3 (150-450) 07/13/24 11:00 07/13/24 CHEMISTRY Potassium 4.2 mmol/L (3.5-5.1) 07/13/24 11:00 07/13/24 Sodium 135 mmol/L (136-145) L 07/13/24 11:00 07/13/24 Magnesium 2.5 mg/dL (1.6-2.6) 07/13/24 11:00 07/13/24 BUN 15 mg/dL (7-18) 07/13/24 11:00 07/13/24 Creatinine 1.26 mg/dL (0.70-1.30) 07/13/24 11:00 07/13/24 Glucose 107 mg/dL (74-106) H 07/13/24 11:00 07/13/24 TSH 0.769 uIU/mL (0.358-3.740) 07/13/24 11:00 06/30 10/22 COAG Pre-Assessment Diagnosis/Proposed Procedure Planned Operative Procedure(s): CSCOPE Anesthesia History Anesthesia History - extension service advisor: Anesthesia History - extension service advisor Hx Hospitalization No 09/08/24 11:38 Any Problems With Anesthesia No 09/08/24 11:38 Cholinesterase deficiency No 09/08/24 11:38 You/Your Family Experience No 09/08/24 11:38 fever (hyperthermia) with Relationship Recent Exposure to Contagious No 09/10/24 08:01 Disease Does patient have nerve No 09/08/24 11:38 stimulator Patient instructed to have device shut off --Does patient have Pacemaker No 09/10/24 08:01 or ICD? When Was Last Pacemaker Check QUESTION #4 FULL TEXT: You/Your Family Experience fever (hyperthermia) with Anesthesia Last Oral Intake Last Oral intake: Last Oral Intake NPO since 06:00 09/10/24 08:01 Meds taken in AM with sips of No 09/10/24 08:01 water? Meds patient instructed to take am of surgery PONV PONV - extension service advisor: PONV - extension service advisor Female No 09/08/24 11:38 HX of Motion Sickness No 09/08/24 11:38 HX of N/V After Surgery No 09/08/24 11:38 Non-Smoker No 09/08/24 11:38 Duration of Surgery greater No 09/08/24 11:38 than 60 minutes Number of Risk Factors PONV Score Height & Weight Height & Weight: Anesthesia: Height & Weight Height 5 ft 4 in 09/10/24 08:01 Weight: 72.2 kg 09/10/24 08:01 Body Mass Index (BMI) 27.3 09/10/24 08:01 Respiratory Assessment Respiratory Assessment - extension service advisor: Respiratory Tract Infection Hx - extension service advisor Hx Respiratory Tract Infection Yes: 07/2023, CLEARED UP 09/08/24 11:38 STOP Sleep Apnea STOP Sleep Apnea - extension service advisor: STOP Sleep Apnea - extension service advisor Hx Hypertension Yes: WHITE COAT SYNDROME 09/08/24 11:38 Hx Sleep Apnea No 09/08/24 11:38 CPAP BIPAP Do you snore loudly (louder No 09/08/24 11:38 than talking or can be heard Do you often feel tired/ No 09/08/24 11:38 fatigued/ sleepy during daytime? Has anyone observed you stop No 09/08/24 11:38 breathing during sleep? STOP Results Negative 09/08/24 11:38 QUESTION #5 FULL TEXT : Do you snore loudly (louder than talking or can be heard through closeddoors)? Tobacco Use History Tobacco Use History - extension service advisor: Tobacco Use History - extension service advisor Tobacco Use Smoking Status Current every day smoker 09/08/24 11:38 Hx Tobacco Use Yes 09/08/24 11:38 Years Smoking Packs Smoked per Day 1 09/08/24 11:38 Smoking Cessation Date was within the last 15 years Hx Smoking Cessation Date Hx Smoking Cessation Counseling Hematologic Medial History Hematologic Hx - extension service advisor: Hematologic Medical Hx - through operator Hx of Blood Transfusion No 09/08/24 11:38 Hx of Transfusion in last 3 No 09/08/24 11:38 Months Date of Last Transfusion (if within last 3 months) Ever experience any problems No 09/08/24 11:38 with transfusion(s)? Specify any problems Hx of Preganancy in last 3 N/A 09/08/24 11:38 Months Nurse Filling Out Transfusion NBUCHER 09/08/24 11:38 & Questions: Date: 09/08/24 09/08/24 11:38 Time: 11:39 09/08/24 11:38 Patient unable to answer at this time (ie. confused, unrespo /Reproduction History /Reproductive History - extension service advisor: /Reproductive Hx- extension service advisor Hx Now No 09/08/24 11:38 Gestational Age (in weeks): EDC: Hx Hx Para Hx Section SAB No 09/08/24 11:38 PFSH Medical History Wears glasses No natural teeth Seizures High cholesterol Smoker Peptic ulcer hemorrhage History of tumor Vision problems Head ache Back problem Home Medications ?Medication ?Instructions ?Recorded ?Last Taken ?Type ibuprofen 200 mg tablet 200 mg PO Q6H PRN pain 07/13 Unknown History mecobalamin (vitamin B12) 500 mcg 500 mcg PO QDAY 07/01 07/24 Unknown History chewable tablet lovastatin 20 mg tablet 20 mg PO QPM #30 tabs Unknown Rx Allergy/AdvReac Type Severity Reaction Status Date / Time lisinopril AdvReac Mild dry mouth, Verified 09/10/24 08:01 cough hydrocodone (From Vicodin) AdvReac Nausea Verified 09/10/24 08:01 Family History Mother Alcoholism Arthritis Cancer cervical Hypertension Grandfather Alcoholism Myocardial infarction, Onset Age: 50 Hypertension Liver disease Surgical History History of hip surgery History of tonsillectomy Hx of appendectomy Social History household members: spouse current occupational status: employed 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 09/10/24818 > Date _ Catalino Kamignlanie Signature: Date CC: ~ Signed [facility]01-14-2025 Evaluation note* Diagnosis Onset Date Resolution Status Admit Date Episodes of staring noneactive Janua ry 2024 9:31am Immunization declined noneactive Jerome uary 2024 9:31am Encounter for screening for malignant neoplasm of colon noneactive Nir hari 2024 9:31am Screening for cardiovascular condition noneactive July 13 9:31am Overuse of medication noneactive Jerome uary 2024 9:31am Establishing care with new doctor, encounter for noneactive July 132024 9:31am Erectile dysfunction noneactive Nir hari 2024 9:31am Sensation of chest tightness noneact daylin July 13, 2024 9:31am Current smoker noneactive July 132024 9:31am [facility] Work Phone: 1(263) 552-795601-14-2025 Evaluation note* Diagnosis Onset Date Resolution Status Admit Date Episodes of staring noneactive Janua ry 2024 9:31am Immunization declined noneactive Jerome uary 2024 9:31am Encounter for screening for malignant neoplasm of colon noneactive Nir hari 2024 9:31am Screening for cardiovascular condition noneactive July 13 9:31am Overuse of medication noneactive Jerome uary 2024 9:31am Establishing care with new doctor, encounter for noneactive July 132024 9:31am Erectile dysfunction noneactive Nir hari 2024 9:31am Sensation of chest tightness noneact daylin July 13, 2024 9:31am Current smoker noneactive July 132024 9:31am Encounter for screening for malignant neoplasm of colon acute Jonnie 2024 7:39am [facility] Work Phone: Consult note Author Catalino Carbajal [facility] Note Date/Time September 10, 2024 8:1 9am [facility] Medical Records Department [address] [place] [address] Pre-Anesthesia Evaluation 09/10/24818 MR#: [id number] Acct: [id number] Name: RO DE LA ROSA Rep #:[id number] : 1965 58 From: Catalino Carbajal MD PCP: Dr. Alyssia La MD Status:REG [facility] Y Race: C Location: [place] [address] ASA Classification* ASA Classification ASA Classification: 2 Assessment & Plan Anesthesia* Anesthesia Assessment Anesthesia Assessment: Discussed sedation and/or anesthesia options, risks, benefits, and alternatives with patient/parents/legal guardian/POA. Questions invited. The patient/parents/legal guardian/POA seems to understand and agrees to proceedwith anesthesia plan. Reviewed the physical assessment, medical history, allergy history and patient home medications list prior to surgery/procedure/anesthetic and documented any changes. Performed airway and anesthesia risk assessments. Anesthesia Type Anesthesia Type: MAC Anesthesia Focused Assessment* Temperature: 97.9 F Pulse Rate: 90 Blood Pressure: 139/86 Respiratory Rate: 16 Pulse Ox: 99 Airway Assessment Mouth opens: >3 cm Mallampati Score: II Focused Labs Anesthesia Preop lab: CBC WBC 12.2 K/mm3 (4.4-11.0) H 07/13/24 11: 5 RBC 5.57 M/mm3 (4.6-6.2) 07/13/24 11:07/13/24 Hgb 16.4 g/dL (13.0-16.5) 07/13/24 11:07/13/24 Hct 49.3 % (40-54) 07/13/24 11:00 07/13/24 Plt Count 320 K/mm3 (150-450) 07/13/24 11:00 07/13/24 CHEMISTRY Potassium 4.2 mmol/L (3.5-5.1) 07/13/24 11:00 07/13/24 Sodium 135 mmol/L (136-145) L 07/13/24 11:00 07/13/24 Magnesium 2.5 mg/dL (1.6-2.6) 07/13/24 11:00 07/13/24 BUN 15 mg/dL (7-18) 07/13/24 11:00 07/13/24 Creatinine 1.26 mg/dL (0.70-1.30) 07/13/24 11:00 07/13/24 Glucose 107 mg/dL (74-106) H 07/13/24 11:00 07/13/24 TSH 0.769 uIU/mL (0.358-3.740) 07/13/24 11:00 06/30 10/22 COAG Pre-Assessment Diagnosis/Proposed Procedure Planned Operative Procedure(s): CSCOPE Anesthesia History Anesthesia History - extension service advisor: Anesthesia History - extension service advisor Hx Hospitalization No 09/08/24 11:38 Any Problems With Anesthesia No 09/08/24 11:38 Cholinesterase deficiency No 09/08/24 11:38 You/Your Family Experience No 09/08/24 11:38 fever (hyperthermia) with Relationship Recent Exposure to Contagious No 09/10/24 08:01 Disease Does patient have nerve No 09/08/24 11:38 stimulator Patient instructed to have device shut off --Does patient have Pacemaker No 09/10/24 08:01 or ICD? When Was Last Pacemaker Check QUESTION #4 FULL TEXT: You/Your Family Experience fever (hyperthermia) with Anesthesia Last Oral Intake Last Oral intake: Last Oral Intake NPO since 06:00 09/10/24 08:01 Meds taken in AM with sips of No 09/10/24 08:01 water? Meds patient instructed to take am of surgery PONV PONV - extension service advisor: PONV - extension service advisor Female No 09/08/24 11:38 HX of Motion Sickness No 09/08/24 11:38 HX of N/V After Surgery No 09/08/24 11:38 Non-Smoker No 09/08/24 11:38 Duration of Surgery greater No 09/08/24 11:38 than 60 minutes Number of Risk Factors PONV Score Height & Weight Height & Weight: Anesthesia: Height & Weight Height 5 ft 4 in 09/10/24 08:01 Weight: 72.2 kg 09/10/24 08:01 Body Mass Index (BMI) 27.3 09/10/24 08:01 Respiratory Assessment Respiratory Assessment - extension service advisor: Respiratory Tract Infection Hx - extension service advisor Hx Respiratory Tract Infection Yes: 07/2023, CLEARED UP 09/08/24 11:38 STOP Sleep Apnea STOP Sleep Apnea - extension service advisor: STOP Sleep Apnea - extension service advisor Hx Hypertension Yes: WHITE COAT SYNDROME 09/08/24 11:38 Hx Sleep Apnea No 09/08/24 11:38 CPAP BIPAP Do you snore loudly (louder No 09/08/24 11:38 than talking or can be heard Do you often feel tired/ No 09/08/24 11:38 fatigued/ sleepy during daytime? Has anyone observed you stop No 09/08/24 11:38 breathing during sleep? STOP Results Negative 09/08/24 11:38 QUESTION #5 FULL TEXT : Do you snore loudly (louder than talking or can be heard through closed doors)? Tobacco Use History Tobacco Use History - extension service advisor: Tobacco Use History - extension service advisor Tobacco Use Smoking Status Current every day smoker 09/08/24 11:38 Hx Tobacco Use Yes 09/08/24 11:38 Years Smoking Packs Smoked per Day 1 09/08/24 11:38 Smoking Cessation Date was within the last 15 years Hx Smoking Cessation Date Hx Smoking Cessation Counseling Hematologic Medial History Hematologic Hx - extension service advisor: Hematologic Medical Hx - through operator Hx of Blood Transfusion No 09/08/24 11:38 Hx of Transfusion in last 3 No 09/08/24 11:38 Months Date of Last Transfusion (if within last 3 months) Ever experience any problems No 09/08/24 11:38 with transfusion(s)? Specify any problems Hx of Preganancy in last 3 N/A 09/08/24 11:38 Months Nurse Filling Out Transfusion NBUCHER 09/08/24 11:38 & Questions: Date: 09/08/24 09/08/24 11:38 Time: 11:39 09/08/24 11:38 Patient unable to answer at this time (ie. confused, unrespo /Reproduction History /Reproductive History - extension service advisor: /Reproductive Hx- extension service advisor Hx Now No 09/08/24 11:38 Gestational Age (in weeks): EDC: Hx Hx Para Hx Section SAB No 09/08/24 11:38 PFSH Medical History Wears glasses No natural teeth Seizures High cholesterol Smoker Peptic ulcer hemorrhage History of tumor Vision problems Head ache Back problem Home Medications ?Medication ?Instructions ?Recorded ?Last Taken ?Type ibuprofen 200 mg tablet 200 mg PO Q6H PRN pain 07/13 Unknown History mecobalamin (vitamin B12) 500 mcg 500 mcg PO QDAY 07/01 07/24 Unknown History chewable tablet lovastatin 20 mg tablet 20 mg PO QPM #30 tabs Unknown Rx Allergy/AdvReac Type Severity Reaction Status Date / Time lisinopril AdvReac Mild dry mouth, Verified 09/10/24 08:01 cough hydrocodone (From Vicodin) AdvReac Nausea Verified 09/10/24 08:01 Family History Mother Alcoholism Arthritis Cancer cervical Hypertension Grandfather Alcoholism Myocardial infarction, Onset Age: 50 Hypertension Liver disease Surgical History History of hip surgery History of tonsillectomy Hx of appendectomy Social History household members: spouse current occupational status: employed 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 09/10/24818 <Electronically signed by Catalino Carbajal MD > Date _ Catalino Carbajal MD Cosigner Signature: Date CC: ~ Signed [facility] Work Phone: Consult note Author Antonio Hansen [facility] Note Date/Time September 10, 2024 9:1 6am [facility] Medical Records Department [address] [place] [address] Anesthesia Postop Eval I 09/10/2415 MR#: [id number] Acct: [id number] Name: RO DE LA ROSA Rep #:[id number] : 1965 58 From: Antonio Hansen PCP: Dr. Alyssia La MD Status:[place] [facility] [place] Race: C Location: [place] [address] Anesthesia: Postop Eval I Current Vital Signs Temperature: 97.2 F Pulse Rate: 88 Blood Pressure: 97/75 Respiratory Rate: 18 Pulse Ox: 96 Oxygen Delivery Method: Room Air Assessment Airway patent: Yes Spontaneous unlabored respirations: Yes Mental status: Asleep nausea: No Vomiting: No Anesthesia Complication: No Fluid Hydration Crystalloid volume administer (ml): 45 Total IV fluid infused: 45 Progress Note Anesthesia document: Postop Eval 1 completed: Yes 09/10/24915 <Electronically signed by Antonio Hansen > Date _ Antonio Veloz Signature: Date CC: ~ Signed [facility] Work Phone: Consult note Author Catalino Carbajal [facility] Note Date/Time September 10, 2024 9:5 0am [facility] Medical Records Department [address] [place] [address] Anesthesia Postop Eval II 09/10/24 0937 MR#: [id number] Acct: [id number] Name: RO DE LA ROSA ALLIE Rep #:[id number] : 1965 58 From: Catalino Carbajal MD PCP: Dr. Alyssia La MD Status:[facility] [place] Race: C Location: [place] [address] Anesthesia Postop Eval I Sum Postop Eval Completion status Anesthesia document: Postop Eval 1 completed: Yes Anesthesia Postop Eval I Summary Anesthesia Postop Eval I Summary: Anesthesia Postop Eval I: Assessment Summary 3 Airway patent Yes 09/10/24 09:16 [email or web address] Spontaneous unlabored Yes 09/10/24 09:16 [email or web address] respirations Mental status Asleep 09/10/24 09:16 [email or web address] nausea No 09/10/24 09:16 [email or web address] Vomiting No 09/10/24 09:16 [email or web address] Anesthesia Postop Eval I: Fluid Summary Crystalloid volume administer 45 09/10/24 09:16 [email or web address] (ml) Colloids volume administered ( ml) Blood Product volume administered (ml) Total IV fluid infused 45 09/10/24 09:16 [email or web address] Anesthesia Postop Eval I: Summary Notes Anesthesia Complication No 09/10/24 09:16 [email or web address] Anesthesia Complication Comment: Post-operative progress note Anesthesia: Postop Eval II Evaluation Mental status: Awake Pain Level: 0 nausea: No Vomiting: No 09/10/24 0937 <Electronically signed by Catalino Carbajal MD > Date _ Catalino Carbajal MD Cosigner Signature: Date CC: ~ Signed [facility] Work Phone: History and physical note Author Chele Stauffer [facility] Note Date/Time September 10, 2024 8:[address] [facility] Medical Records Department [address] [place] [address] History & Physical Exam 09/10/2446 MR#: [id number] Acct: [id number] Name: RO DE LA ROSA ALLIE Rep #:[id number] : 1965 58 From: Chele hector MD PCP: Dr. Alyssia La MD Status:[facility] [place] Location: [place] [address] HPI - General HPI Narrative RO DE LA ROSA, is a 58 M who presents for screening colonoscopy. This is his first colonoscopy. He denies abdominal pain or blood in the stool. He has no family history of colon cancer. [facility] Medical History Wears glasses No natural teeth Seizures High cholesterol Smoker Peptic ulcer hemorrhage History of tumor Vision problems Head ache Back problem Home Medications ?Medication ?Instructions ?Recorded ?Last Taken ?Type ibuprofen 200 mg tablet 200 mg PO Q6H PRN pain 07/13 Unknown History mecobalamin (vitamin B12) 500 mcg 500 mcg PO QDAY 07/01 07/24 Unknown History chewable tablet lovastatin 20 mg tablet 20 mg PO QPM #30 tabs Unknown Rx Allergy/AdvReac Type Severity Reaction Status Date / Time lisinopril AdvReac Mild dry mouth, Verified 09/10/24 08:01 cough hydrocodone (From Vicodin) AdvReac Nausea Verified 09/10/24 08:01 Family History Mother Alcoholism Arthritis Cancer cervical Hypertension Grandfather Alcoholism Myocardial infarction, Onset Age: 50 Hypertension Liver disease Surgical History History of hip surgery History of tonsillectomy Hx of appendectomy Social History household members: spouse current occupational status: employed 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, 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 Smoking Status: Current every day smoker tobacco type: cigarettes quit status: not considering quitting alcohol intake: former details: quit 01/2011 substance use type: does not use what type of physical activity do you participate in: none seatbelt use: always do you feel safe at home: Yes Past Medical/Surgical History Planned Operation Planned Operative Procedure(s): CSCOPE Previous Hospitalizations/Surgeries HX Hospitalizations: No Any Problems With Anesthesia: No You/Your Family Experience Fever (Hyperthermia) With Anes: No Cholinesterase deficiency: No Cardiovascular Hx Hypertension: Yes (WHITE CO[employer] SYNDROME) Respiratory Hx Sleep Apnea: No Hx Respiratory Tract Infection/Cold (presently): Yes (07/2023, CLEARED UP) Do You Snore Loudly (louder than talking or can be heard): No Do You Often Feel Tired/ Fatigued/ Sleepy Dring Daytime?: No Has Anyone Observed You Stop Breathing During Sleep?: No Result (for STOP score): Negative Smoking Status: Current every day smoker Neurological Does patient have nerve stimulator: No Reproduction : No Miscellaneous Recent Exposure to Contagious Disease: No Allergies lisinopril Adverse Reaction (Mild, Verified 09/10/24 08:01) dry mouth, cough CARRILLO hydrocodone (From Vicodin) Adverse Reaction (Verified 09/10/24 08:01) Nausea Discharge Is Pt Admitted From a Fdc, or a Fpc: No After D/C, Where Do you Plan to Go: Return Home Vital Signs Vital Signs Vital Signs: 09/10/24 08:01 09/10/24 08:01 09/10/24 08:19 Temperature 97.9 F 97.9 F Temperature Source Temporal Pulse Rate 90 90 Respiratory Rate 16 16 Respiratory Pattern Normal Blood Pressure 139/86 H 139/86 H Blood Pressure Mean 103 Blood Pressure Source Monitor Blood Pressure Position Semi-Fowlers Blood Pressure Location Right Arm Pulse Ox 99 99 Oxygen Delivery Method Room Air Weight Weight: 159 lb 2.78 oz Body Mass Index (BMI) 27.3 Physical Exam Const alert and oriented x3 HEENT normocephalic Eyes PERRL Resp normal respiratory effort and normal air movement Cardio regular rate and regular rhythm GI soft to palpation, non-tender and non-distended Extremity normal to inspection Assessment & Plan Assessment/Plan (1) Encounter for screening for malignant neoplasm of colon: PLAN: I explained endoscopy in detail to the patient. I explained the risks including but not limited to stroke or heart attack with anesthesia, perforationof the GI tract, bleeding, infection. I explained that any of these could necessitate further emergency surgery. The patient understands and all questions were answered sufficiently. The patient wishes to proceed with procedure. Chele Stauffer MD Pager: [facility] [address] [place] [address], [address] [place] [address] Office: Surgery Risks - Colonoscopy Risks Include but are not Limited To: Risks include but are not limited to: Bleeding, perforation requiring further surgery, inability to complete colonoscopy requiring barium enema. 09/10/24 0847 <Electronically signed by Chele Stauffer MD> Cosigner Signature (if applicable): CC: Dr. Alyssia La MD; Dr. 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 EST CARE - PPW SENT July 13 9:31am Amb Documentation July 20, 2024 1 1:51am STARING EPISODES August 19, 2024 9:54am Transient alteration of awareness Februa 2024 7:58am Reason for Visit Admit Date Episodes of staring July 13, 2024 9 :31am Immunization declined July 13, 2024 9:31am Encounter for screening for malignant ne oplasm of colon July 13, 2024 9:31am Screening for cardiovascular condition J anuary 2024 9:31am Overuse of medication July 13, 2024 9:31am Establishing care with new doctorcheri ntlanie for July 13, 2024 9:31am Erectile dysfunction July 13, 2024 9:31am Sensation of chest tightness June 9:31am Current smoker July 13, 2024 9 :31am Reason for Visit Admit Date Episodes of staring July 13, 2024 9 :31am Immunization declined July 13, 2024 9:31am Encounter for screening for malignant ne oplasm of colon July 13, 2024 9:31am Screening for cardiovascular condition J anuary 2024 9:31am Overuse of medication July 13, 2024 9:31am Establishing care with new doctorcheri for July 13, 2024 9:31am Erectile dysfunction July 13, 2024 9:31am Sensation of chest tightness June 9:31am Current smoker July 13, 2024 9 :31am Encounter for screening for malignant ne oplasm of colon September 10, 2024 7:39am Chief Complaint Admit Date STARING EPISODES August 19, 2024 9:54am Transient alteration of awareness Februa 2024 7:58am CONTINUE DISCUSSIONS October 19, 2024 10 :35am 7 WK FU December 07, 2024 11:0 6am Reason for Visit Admit Date Encounter for screening for malignant ne oplasm of colon September 10, 2024 7:39am Episodes of staring October 19, 2024 10: 35am Overuse of medication October 19, 2024 1 0:35am Cobalamin deficiency October 19, 2024 10 :35am Erectile dysfunction October 19, 2024 10 :35am Mixed hyperlipidemia October 19, 2024 10 :35am Anxiety and depression October 19, 2024 10:35am Current smoker October 19, 2024 10: 35am Episodes of staring December 07, 2024 11:0 6am Overuse of medication December 07, 2024 11 :06am Cobalamin deficiency December 07, 2024 11: 06am Erectile dysfunction December 07, 2024 11: 06am Mixed hyperlipidemia December 07, 2024 11: 06am Anxiety and depression December 07, 2024 1 1:06am Current smoker December 07, 2024 11:0 6am Family History No Family History Records Found Relationship Condition Age at Onset Recorded Date/T isaias mother Alcoholism Unknown Arthritis Unknown Malignant neoplasm Unknown Hypertension Unknown grandfather Alcoholism Unknown Myocardial infarction 50 Disorder of liver Unknown Advance Directives No Advanced Directives Records Found Advance Directive Response Recorded Date/ Time Living Will No March 15, 2024 9:10am Power of Hoop Riveting Machine Operator No February 9:10am Advance Directive Response Recorded Date/ Time Living Will No March 15, 2024 10:10am Power of Hoop Riveting Machine Operator No February 10:10am Living Will No September 08, 2024 11:38am Power of Hoop Riveting Machine Operator No September 08 11:38am Advance Directive Response Recorded Date/ Time Living Will No September 08, 2024 11:38am Do you have a Healthcare Power of Hoop Riveting Machine Operator? No September 08, 2024 11:38am Summary Purpose Additional Source Comments Care Teams (unrecognized sec tion and content) Team Status: Active Member Role Status Dates Dr. Alyssia La MD Primary Care Provider Active Team Status: Inactive Member Role Status Dates No Primary Care Physician Primary Care Provider Active Start: July 13, 2024 End: July 13, 2024 No Primary Care Physician Referring Provider Active Start: July 13, 2024 End: July 13, 2024 Dr. Alyssia La MD Attending Provider Active Start: July 13, 2024 End: July 13, 2024 Team Status: Inactive Member Role Status Dates Dr. Alyssia La MD Primary Care Provider Active Start: July 13, 2024 End: July 13, 2024 Dr. Alyssia La MD Attending Provider Active Start: July 13, 2024 End: July 13, 2024 Dr. Alyssia La MD Referring Provider Active Start: July 13, 2024 End: July 13, 2024 Team Status: Active Member Role Status Dates Dr. Alyssia La MD Primary Care Provider Active Start: July 20, 2024 [facility] Attending Provider Active Start: 2024 Team Status: Inactive Member Role Status Dates Dr. Alyssia La MD Primary Care Provider Active Start: August 19, 2024 End: August 19, 2024 Dr. Alyssia La MD Attending Provider Active Start: August 19, 2024 End: August 19, 2024 Dr. Alyssia La MD Referring Provider Active Start: August 19, 2024 End: August 19, 2024 Team Status: Inactive Member Role Status Dates Dr. Alyssia La MD Primary Care Provider Active Start: August 23, 2024 End: August 23, 2024 Dr. Alyssia La MD Attending Provider Active Start: August 23, 2024 End: August 23, 2024 Dr. Alyssia La MD Referring Provider Active Start: August 23, 2024 End: August 23, 2024 Team Status: Inactive Member Role Status Dates Dr. Alyssia La MD Primary Care Provider Active Start: September 10, 2024 End: September 10, 2024 Dr. Alyssia aL MD Referring Provider Active Start: September 10, 2024 End: September 10, 2024 Dr. Chele Stauffer MD Attending Provider Active Start: September 10, 2024 End: September 10, 2024 Team Status: Active Member Role Status Dates Dr. Alyssia La MD Primary Care Provider Active Start: September 10, 2024 Dr. Alyssia La MD Referring Provider Active Start: September 10, 2024 Dr. Chele Stauffer MD Attending Provider Active Start: September 10, 2024 Dr. Chele Stauffer MD Other Provider Active Start: September 10, 2024 Team Status: Inactive Member Role Status Dates Dr. Alyssia La MD Primary Care Provider Active Start: October 19, 2024 End: October 19, 2024 Dr. Alyssia La MD Attending Provider Active Start: October 19, 2024 End: October 19, 2024 Dr. Alyssia La MD Referring Provider Active Start: October 19, 2024 End: October 19, 2024 Team Status: Inactive Member Role Status Dates Dr. Alyssia La MD Primary Care Provider Active Start: December 07, 2024 End: December 07, 2024 Dr. Alyssia La MD Attending Provider Active Start: December 07, 2024 End: December 07, 2024 Dr. Alyssia La MD Referring Provider Active Start: December 07, 2024 End: December 07, 2024 Goals (unrecognized section and content) Goals may be documented in a n alternate section (unrecognized sect ion and content) No Status Records Found INFORMATION SOURCE (unrecogn ized section and content) DATE CREATED AUTHOR 12/09/2024 [facility] FOR RECORDS PERTAINING TO PATIENTS WHO ARE OR HAVE BEEN ENROLLED IN A CHEMICAL DEPENDENCY/SUBSTANCEABUSE PROGRAM, SOME INFORMATION MAY BE OMITTED. This clinical summary was aggregated from multiple sources. Caution should be exercised in using it in the provision of clinical care. This summary normalizes information from multiple sources, and as a consequence, information in this document may materially change the coding, format and clinical context of patient data. In addition, data may be omitted in some cases. CLINICAL DECISIONS SHOULD BE BASED ON THE PRIMARY CLINICAL RECORDS. [employer] provides no warranty or guarantee of the accuracy or completeness of information in this document.
[2025-01-29 09:46] LABS: Cholesterol 191 mg/dL (<=200); Low Density Lipoprotein Calc. 129 mg/dL; Triglycerides 111 mg/dL; Very Low Density Lipoprotein 22 mg/dL (5-40); Vitamin B12 582 pg/mL (180-914); cholesterol:hdl ratio screen 4.79
== END | disposition home or self-care (01) ==
LOC: LAB 08:29
PROVIDERS: PCP Internal Medicine; Referring Provider Internal Medicine; Visit Provider Internal Medicine
DX: N52.9 Male erectile dysfunction, unspecified (principal); E53.8 Deficiency of other specified B group vitamins; E78.2 Mixed hyperlipidemia
CPT/HCPCS: 36415; 80061; 82607; 84402